=== PATIENT | female | born 1945 | race Caucasian/White ===

== ENCOUNTER 2021-03-17 05:49 | Inpatient (IN) ==
[2021-03-17] MEDS ORDERED: IOPAMIDOL 100 ML BOTTLE IV ONE (05:50)
--- NOTE | 2021-03-17 06:03 | Emergency Department Note ---
Overdose HPI General Chief Complaint: Overdose Stated Complaint: overdose Time Seen by Provider: 03/17/21 05:57 History of Present Illness HPI Narrative: Narrative: Dense to room T2 via EMS for evaluation of overdose. History is limited as the patient is somnolent and only mumbles. I did provide the majority of the history from the patient's medical record and EMS. EMS reports that they were called to the scene by the patient's roommate who is her daughter. It is reported that there was a argument between the patient and her daughter. EMS reports that her daughter had checked on her earlier this evening and noted that she was okay. Just prior to arrival the roommate noted the patient to have an altered level of consciousness with 2 empty pill bottles. These include oxycodone 20 mg tablets which were filled on 02/27/2021 with 165 tablets, and methadone 10 mg tablets which were filled on 02/28/2021 with 111 tablets. Later the daughter has called us to inform us that the patient also had empty pill bottles of buspirone 10 mg filled on 12/29/2020 with a 3-month supply and Klonopin 0.5 mg tablets filled on 03/09/2021 with 60 tablets. EMS reports there were multiple pill bottles noted in the room but these are the only ones they identified as being empty. They raised the question of the patient might have overdosed on her some of her thyroid medication as well. Per EMS Narcan 4 mg was administered by bystanders prior to their arrival. They state the patient did vomit prior to arrival but denied any significant observed aspiration. Related Data Home Medications Medication Instructions Recorded Confirmed alprazolam 0.5 mg tablet See Rx Instructions PO .COMPLEX 03/29/20 03/29/20 hydroxyzine HCl 25 mg tablet See Rx Instructions PO .COMPLEX 03/29/20 levothyroxine 75 mcg tablet See Rx Instructions PO .COMPLEX 03/29/20 03/29/20 metformin 500 mg tablet,extended See Rx Instructions PO .COMPLEX 03/29/20 03/29/20 release 24 hr methadone 10 mg tablet See Rx Instructions PO .COMPLEX 03/29/20 03/29/20 oxybutynin chloride 5 mg tablet See Rx Instructions PO .COMPLEX 03/29/20 03/29/20 oxycodone 20 mg tablet See Rx Instructions PO .COMPLEX 06/03/20 06/03/20 pantoprazole 40 mg granules See Rx Instructions PO .COMPLEX 03/29/20 03/29/20 delayed-release for susp in packet simvastatin 40 mg tablet See Rx Instructions PO .COMPLEX 03/29/20 03/29/20 Allergies Allergy/AdvReac Type Severity Reaction Status Date / Time Heparin Analogues Allergy Severe HIT Unverified 03/30/15 15:01 [HEPARIN AGENTS] omeprazole [From PRILOSEC] Allergy Intermediate Rash Unverified 03/30/15 15:01 gabapentin [From NEURONTIN] Allergy Unknown Unknown Unverified 03/30/15 15:01 Sulfa (Sulfonamide Allergy Unknown Unverified 03/30/15 15:01 Antibiotics) [SULFA (SULFONAMIDE ANTIBIOTICS)] From PRILOSEC Allergy Intermediate Rash Uncoded 03/30/15 15:01 From AMBIEN AdvReac Mild Psychosis Uncoded 03/30/15 15:01 Review of Systems ROS ROS Narrative: Narrative: Limitations: ROS unobtainable due to patients medical condition PFSH Narrative Patient History Narrative: Narrative: Medical/Surgical/Family History All Active Problems (Updated 03/17/21 @ 06:27 by Patricio Gomez MD) Overdose (Acute) Radiculopathy, lumbar region (Chronic) Hepatitis-C (Chronic) Hypertension (Chronic) History of pneumonia (Chronic) Shortness of breath on exertion (Chronic) Myofascial pain (Chronic) Hepatitis B (Chronic) Hepatitis A (Chronic) Fibromyalgia (Chronic) History of embolic stroke (Chronic) Chronic bronchitis (Chronic) GERD (gastroesophageal reflux disease) (Chronic) Rheumatoid arthritis (Chronic) Opioid dependence (Chronic) Degenerative joint disease (Chronic) Medical History Chronic bronchitis Degenerative joint disease Fibromyalgia GERD (gastroesophageal reflux disease) Hepatitis A Hepatitis B Hepatitis-C s/p interferon therapy History of embolic stroke w/minimal post stroke sequelae History of pneumonia Hypertension Myofascial pain Opioid dependence pain control of benign origin Radiculopathy, lumbar region Rheumatoid arthritis Shortness of breath on exertion Surgical History History of surgery TF TYLOR #1 Bilat L4-5 w/sed 05/24/20 LESI #1 L4-5 w/o sed 11-05-11 Family History Other No pertinent family history Exam Narrative Narrative: Narrative: General General appearance: Present appears intoxicated, in no apparent distress and lethargic Head Head: Present atraumatic, normocephalic and normal inspection Eye Eye: Present normal appearance, PERRL (Pinpoint pupils bilaterally) and EOMI; Absent conjunctival injection ENT ENT: Present normal exam and mucous membranes moist Neck Neck: Present normal inspection and trachea midline Respiratory Respiratory: Present normal lung sounds bilaterally; Absent respiratory distress Cardiovascular Cardiovascular: Present regular rate, normal rhythm and normal heart sounds Adbominal Abdominal: Present soft; Absent distention, tenderness, guarding and rebound Extremities Extremities: Present normal inspection; Absent tenderness Back Back: Present normal inspection; Absent tenderness Neurological Neurological: Present oriented X3 and CN II-XII intact; Absent alert (The patient only mumbles and is somnolent but does respond to painful stimuli.) and motor sensory deficit (Otherwise limited neurologic exam secondary to patient's somnolence, no focal neurologic deficits identified) Skin Skin: Present warm (WNL) and dry; Absent rash MDM MDM Narrative Medical decision making narrative: Narrative: Patient presents for evaluation treatment of multiple drug overdose. The patient lives with her daughter who is her roommate. It is reported by the granddaughter who has later arrived in the emergency department that they have been having disagreements recently. The pat ient appears to have ingested a large unknown quantity of oxycodone, methadone, buspirone and Klonopin. I have discussed the case with poison center. At this time it is supportive care recommended. Diagnostic studies have been initiated. EKG shows a normal sinus rhythm, the patient is protecting her airway. She is mildly hypoxic without supplemental oxygen but this corrects via oxygen by face mask. The patient will require admission for observation to complete her medical clearance. I have asked the oncoming physician to follow-up on all diagnostic studies continue her management admit the patient. The patient will benefit from evaluation by [facility] once medically cleared. EKG Data EKG #1: EKG attestation: Yes I reviewed and interpreted this EKG., Yes There are no EKG findings of acute coronary syndrome and Yes This EKG will be read by hatch boss EKG results narrative: Normal sinus rhythm, rate 62, normal ST segments, premature atrial complex noted, mild prolonged QTC at 504 Rhythm Strip Data Rhythm Strip Rate: 65 Interpretation: Normal sinus rhythm Pulse Oximetry Data Pulse Ox %: 88 Interpretation: Hypoxia on room air, corrected with facemask to 95% Discharge Plan Patient/Caregiver Discharge Instructions Pt seen by SOLID FIBER PASTER OPERATOR/PA only: No Clinical Impression: Overdose Patient Disposition: Still a Patient Prescriptions: No Action alprazolam 0.5 mg tablet See Rx Instructions PO .COMPLEX RF: 0 hydroxyzine HCl 25 mg tablet 25 mg tablet See Rx Instructions PO .COMPLEX RF: 0 levothyroxine 75 mcg tablet See Rx Instructions PO .COMPLEX RF: 0 metformin 500 mg tablet extended release 24 hr See Rx Instructions PO .COMPLEX RF: 0 methadone 10 mg tablet See Rx Instructions PO .COMPLEX RF: 0 oxybutynin chloride 5 mg tablet See Rx Instructions PO .COMPLEX RF: 0 oxycodone 20 mg tablet See Rx Instructions PO .COMPLEX RF: 0 pantoprazole [address] for susp in packet See Rx Instructions PO .COMPLEX RF: 0 simvastatin 40 mg tablet See Rx Instructions PO .COMPLEX RF: 0
[2021-03-17] MEDS ORDERED: 0.9 % SODIUM CHLORIDE 1,000 ML IV ONE (06:31)
--- NOTE | 2021-03-17 06:57 | XRay Report ---
CLINICAL INFORMATION: opiate overdose COMPARISON: 07/14/2010 FINDINGS: The heart is mildly enlarged. Mediastinum is unremarkable. Pulmonary vessels are mildly distended and there is mild interstitial edema throughout both lungs. Mild superimposed infiltrates in the bases. No effusions IMPRESSION: Mild CHF or volume overload Small superimposed bibasilar infiltrates consider aspiration. Interpreted and Authenticated by: Ananth Mcduffie 03/17/21
[2021-03-17 07:27] LABS: Basophils # (Auto) 0.04 K/mcL (0.00-0.20); Basophils % (Auto) 0.5 % (0.0-2.0); Eosinophils # (Auto) 0.04 K/mcL (0.00-0.70); Eosinophils % (Auto) 0.5 % (0.0-7.0); Hematocrit 40.6 % (36.0-48.0); Hemoglobin 13.7 g/dL (12.0-15.0); Lymphocytes # (Auto) 2.06 K/mcL (1.50-4.80); Lymphocytes % (Auto) 23.6 % (15.0-49.0); Mean Cell Volume 86.6 fL (80.0-100.0); Mean Corpuscular HGB Conc 33.7 g/dL (31.0-36.0); Mean Platelet Volume 10.7 fL (7.4-10.4); Monocytes # (Auto) 0.73 K/mcL (0.10-0.90); Monocytes % (Auto) 8.4 % (1.0-12.0); Platelet Count 184 K/mcL (140-440); RBC 4.69 M/mcL (4.00-5.20); WBC 8.7 K/mcL (4.5-11.0)
[2021-03-17 08:03] LABS: ALT/SGPT 19 U/L (<40); AST/SGOT 29 U/L (<32); Albumin 4.6 gm/dL (3.2-5.2); Albumin/Globulin Ratio 1.4 (1.0-2.3); Alkaline Phosphatase 60 U/L (39-117); Bilirubin,Total 0.4 mg/dL (0.1-1.0); Blood Urea Nitrogen 7 mg/dL (8-23); Calcium 9.5 mg/dL (8.6-10.4); Carbon Dioxide 23 mmol/L (22-30); Chloride 93 mmol/L (96-108); Globulin 3.3 gm/dL (2.2-3.7); Glomerular Filtration Rate 83; Glucose 122 mg/dL (70-105)
[2021-03-17 08:10] LABS: Free T3 2.2 pg/mL (2.0-4.4)
[2021-03-17 08:14] LABS: Free T4 (Free Thyroxine) 1.01 ng/dL (0.93-1.70); Thyroid Stimulating Hormone 1.66 uIU/mL (0.27-5.01)
[2021-03-17] MEDS ORDERED: FUROSEMIDE 20 MG/2 ML VIAL IV ONE (08:37)
--- NOTE | 2021-03-17 08:49 | Emergency Department Note ---
Overdose HPI General Chief Complaint: Overdose Stated Complaint: overdose Time Seen by Provider: 03/17/21 05:57 Source: patient, family, EMS, RN notes reviewed and old records reviewed Mode of arrival: EMS Limitations: altered mental status History of Present Illness HPI Narrative: Narrative: complaint: intentional overdose Onset (ago): unknown (Between 4 PM and 4 AM) Timing confirmed by: family member How Overdose Was Discovered: called family/friend Context: Intentional Overdose: relationship problems Associated symptoms: paranoia Treatments Prior to Arrival: narcan and other (Patient vomite after narcan, no pill fragments noted) Related Data Home Medications Medication Instructions Recorded Confirmed hydroxyzine HCl 25 mg tablet 25 mg PO QHS PRN 03/29/20 03/17/21 metformin 500 mg tablet,extended 500 mg PO TID 03/29/20 03/17/21 release 24 hr methadone 10 mg tablet 20 mg PO BID 03/29/20 03/17/21 oxycodone 20 mg tablet 20 mg PO Q4HP PRN 03/29/20 03/17/21 pantoprazole 40 mg granules 40 mg PO DAILY 03/29/20 03/17/21 delayed-release for susp in packet simvastatin 40 mg tablet 40 mg PO QHS 03/29/20 03/17/21 buspirone 10 mg PO TID PRN 03/17/21 03/17/21 clonazepam 0.5 mg PO BID PRN 03/17/21 03/17/21 duloxetine 30 mg PO QDAY 03/17/21 03/17/21 ergocalciferol (vitamin D2) 50,000 unit PO WEEKLY 03/17/21 03/17/21 [Calciferol] furosemide 20 mg PO QDAY 03/17/21 03/17/21 potassium chloride 10 meq PO QDAY 03/17/21 03/17/21 Allergies Allergy/AdvReac Type Severity Reaction Status Date / Time Heparin Analogues Allergy Severe HIT Verified 03/17/21 09:23 [HEPARIN AGENTS] omeprazole [From PRILOSEC] Allergy Intermediate Rash Verified 03/17/21 09:23 gabapentin [From NEURONTIN] Allergy Unknown Unknown Verified 03/17/21 09:23 Sulfa (Sulfonamide Allergy Unknown Verified 03/17/21 09:23 Antibiotics) [SULFA (SULFONAMIDE ANTIBIOTICS)] Review of Systems ROS ROS Narrative: Narrative: Limitations: ROS unobtainable due to patients medical condition [facility] Narrative Patient History Narrative: Narrative: Medical/Surgical/Family History All Active Problems (Updated 03/17/21 @ 13:57 by Fazal Meza MD) Overdose (Acute) Suicide attempt by multiple drug overdose (Acute) Methadone overdose (Acute) Radiculopathy, lumbar region (Chronic) Hepatitis-C (Chronic) Hypertension (Chronic) History of pneumonia (Chronic) Shortness of breath on exertion (Chronic) Myofascial pain (Chronic) Hepatitis B (Chronic) Hepatitis A (Chronic) Fibromyalgia (Chronic) History of embolic stroke (Chronic) Chronic bronchitis (Chronic) GERD (gastroesophageal reflux disease) (Chronic) Rheumatoid arthritis (Chronic) Opioid dependence (Chronic) Degenerative joint disease (Chronic) Medical History Chronic bronchitis Degenerative joint disease Fibromyalgia GERD (gastroesophageal reflux disease) Hepatitis A Hepatitis B Hepatitis-C s/p interferon therapy History of embolic stroke w/minimal post stroke sequelae History of pneumonia Hypertension Myofascial pain Opioid dependence pain control of benign origin Radiculopathy, lumbar region Rheumatoid arthritis Shortness of breath on exertion Surgical History History of surgery TF TYLOR #1 Bilat L4-5 w/sed 05/24/20 LESI #1 L4-5 w/o sed 11-05-11 Family History Other No pertinent family history Social History Smoking Status: Former smoker Exam Narrative Narrative: Narrative: General Limitations: altered mental status General appearance: Present lethargic, obese and sleepy Head Head: Present atraumatic and normocephalic Eye Eye: Present PERRL ENT ENT: Present normal exam and mucous membranes dry Neck Neck: Present normal inspection, full ROM and tenderness Chest Chest: Present normal inspection; Absent tenderness Respiratory Respiratory: Present rales/crackles; Absent respiratory distress Cardiovascular Cardiovascular: Present regular rate, normal rhythm and systolic murmur Adbominal Abdominal: Present soft; Absent distention, tenderness, guarding and rebound Extremities Extremities: Present normal inspection and full ROM; Absent tenderness, pedal edema and pretibial edema Back Back: Present normal inspection and tenderness; Absent CVA tenderness (R) and CVA tenderness (L) Expanded Neurological Patient oriented to: Present person Speech: Present slurred CRANIAL NERVES: gag reflex (IX): Normal Coma Scale Eye Opening: To Voice Coma Scale Motor Response: Obeys Commands Coma Scale Verbal Response: Confused Coma Scale Total: 13 Psychiatric Psychiatric: Present depressed, suicidal ideation and tearful Skin Skin: Present warm (WNL); Absent rash Course Vital Signs Vital signs: Vital Signs Pulse Rate 63 03/17/21 05:50 Respiratory Rate 20 03/17/21 05:50 Blood Pressure 211/84 03/17/21 05:50 Pulse Oximetry (%) 95 03/17/21 05:50 Pulse Rate 57 L 03/17/21 13:46 Respiratory Rate 19 03/17/21 13:46 Blood Pressure 176/123 03/17/21 13:46 Pulse Oximetry (%) 98 03/17/21 13:46 MDM MDM Narrative Medical decision making narrative: Narrative: 75-year-old female with polysubstance overdose for intentional self-harm. Main component of her overdose was methadone. Patient responded to Narcan at her home and is required multiple doses of Narcan here in the emergency department. Patient's family declined transfer requested the patient will be kept in the emergency department until staffing can be found for the patient to be admitted to the hospital. Patient remains on O2 and will require hospitalization for observation of the methadone rebound. Discussed patient with Bijan EAGLE and the patient is on a hold for suicide attempt. Lab Data Lab results reviewed: Yes I reviewed the patient's lab results. Result diagrams: 03/17/21 06:48 03/17/21 06:48 Labs: Lab Results 03/17/21 03/17/21 03/17/21 Range/Units 06:47 06:48 06:48 WBC 8.7 (4.5-11.0) K/mcL RBC 4.69 (4.00-5.20) M/mcL Hgb 13.7 (12.0-15.0) g/dL Hct 40.6 (36.0-48.0) % MCV 86.6 (80.0-100.0) fL MCH 29.2 (26.0-34.0) pg MCHC 33.7 (31.0-36.0) g/dL RDW 12.0 (11.5-14.5) % Plt Count 184 (140-440) K/mcL MPV 10.7 H (7.4-10.4) fL Neut % (Auto) 67.0 (38.0-78.0) % Lymph % (Auto) 23.6 (15.0-49.0) % Cannon % (Auto) 8.4 (1.0-12.0) % Eos % (Auto) 0.5 (0.0-7.0) % Baso % (Auto) 0.5 (0.0-2.0) % Lymph # (Auto) 2.06 (1.50-4.80) K/mcL Cannon # (Auto) 0.73 (0.10-0.90) K/mcL Eos # (Auto) 0.04 (0.00-0.70) K/mcL Baso # (Auto) 0.04 (0.00-0.20) K/mcL Absolute Neutrophils 5.87 (1.80-8.00) K/mcL Sodium 131 L (133-145) mmol/L Potassium 3.5 (3.3-5.1) mmol/L Chloride 93 L (96-108) mmol/L Carbon Dioxide 23 (22-30) mmol/L Anion Gap 15.0 (8.0-16.0) BUN 7 L (8-23) mg/dL Creatinine 0.7 (0.6-1.1) mg/dL GFR Calculation 83 Glucose 122 H (70-105) mg/dL Calcium 9.5 (8.6-10.4) mg/dL Total Bilirubin 0.4 (0.1-1.0) mg/dL AST 29 (<32) U/L ALT 19 (<40) U/L Alkaline Phosphatase 60 (39-117) U/L Troponin T (<0.03) ng/mL Total Protein 7.9 (5.9-8.4) gm/dL Albumin 4.6 (3.2-5.2) gm/dL Globulin 3.3 (2.2-3.7) gm/dL Albumin/Globulin Ratio 1.4 (1.0-2.3) TSH 1.66 (0.27-5.01) uIU/mL Free T4 1.01 (0.93-1.70) ng/dL Free T3 pg/mL 2.2 (2.0-4.4) pg/mL Urine Color Urine Appearance (Clear) Urine pH (5.0-9.0) Ur Specific Pray (1.000-1.035) Urine Protein (Negative) mg/dL Urine Glucose (UA) (Negative) mg/dL Urine Ketones (Negative) mg/dL Urine Occult Blood (Negative) mg/dL Urine Nitrate (Negative) Urine Bilirubin (Negative) mg/dL Urine Urobilinogen mg/dL Ur Leukocyte Esterase (Negative) /ug Urine RBC (0-3) /hpf Urine WBC (0-4) /hpf Ur Squamous Epith Cells (0-4) /hpf Urine Bacteria (0) /hpf Ur Culture Indicated? Salicylates mg/dL Acetaminophen ug/mL Ethyl Alcohol (<0.010) gm/dL 03/17/21 03/17/21 03/17/21 Range/Units 06:48 06:49 09:06 WBC (4.5-11.0) K/mcL RBC (4.00-5.20) M/mcL Hgb (12.0-15.0) g/dL Hct (36.0-48.0) % MCV (80.0-100.0) fL MCH (26.0-34.0) pg MCHC (31.0-36.0) g/dL RDW (11.5-14.5) % Plt Count (140-440) K/mcL MPV (7.4-10.4) fL Neut % (Auto) (38.0-78.0) % Lymph % (Auto) (15.0-49.0) % Cannon % (Auto) (1.0-12.0) % Eos % (Auto) (0.0-7.0) % Baso % (Auto) (0.0-2.0) % Lymph # (Auto) (1.50-4.80) K/mcL Cannon # (Auto) (0.10-0.90) K/mcL Eos # (Auto) (0.00-0.70) K/mcL Baso # (Auto) (0.00-0.20) K/mcL Absolute Neutrophils (1.80-8.00) K/mcL Sodium (133-145) mmol/L Potassium (3.3-5.1) mmol/L Chloride (96-108) mmol/L Carbon Dioxide (22-30) mmol/L Anion Gap (8.0-16.0) BUN (8-23) mg/dL Creatinine (0.6-1.1) mg/dL GFR Calculation Glucose (70-105) mg/dL Calcium (8.6-10.4) mg/dL Total Bilirubin (0.1-1.0) mg/dL AST (<32) U/L ALT (<40) U/L Alkaline Phosphatase (39-117) U/L Troponin T < 0.01 (<0.03) ng/mL Total Protein (5.9-8.4) gm/dL Albumin (3.2-5.2) gm/dL Globulin (2.2-3.7) gm/dL Albumin/Globulin Ratio (1.0-2.3) TSH (0.27-5.01) uIU/mL Free T4 (0.93-1.70) ng/dL Free T3 pg/mL (2.0-4.4) pg/mL Urine Color Urine Appearance (Clear) Urine pH (5.0-9.0) Ur Specific Pray (1.000-1.035) Urine Protein (Negative) mg/dL Urine Glucose (UA) (Negative) mg/dL Urine Ketones (Negative) mg/dL Urine Occult Blood (Negative) mg/dL Urine Nitrate (Negative) Urine Bilirubin (Negative) mg/dL Urine Urobilinogen mg/dL Ur Leukocyte Esterase (Negative) /ug Urine RBC (0-3) /hpf Urine WBC (0-4) /hpf Ur Squamous Epith Cells (0-4) /hpf Urine Bacteria (0) /hpf Ur Culture Indicated? Salicylates < 0.3 mg/dL Acetaminophen < 5.0 ug/mL Ethyl Alcohol < 0.010 (<0.010) gm/dL 03/17/21 Range/Units 09:10 WBC (4.5-11.0) K/mcL RBC (4.00-5.20) M/mcL Hgb (12.0-15.0) g/dL Hct (36.0-48.0) % MCV (80.0-100.0) fL MCH (26.0-34.0) pg MCHC (31.0-36.0) g/dL RDW (11.5-14.5) % Plt Count (140-440) K/mcL MPV (7.4-10.4) fL Neut % (Auto) (38.0-78.0) % Lymph % (Auto) (15.0-49.0) % Cannon % (Auto) (1.0-12.0) % Eos % (Auto) (0.0-7.0) % Baso % (Auto) (0.0-2.0) % Lymph # (Auto) (1.50-4.80) K/mcL Cannon # (Auto) (0.10-0.90) K/mcL Eos # (Auto) (0.00-0.70) K/mcL Baso # (Auto) (0.00-0.20) K/mcL Absolute Neutrophils (1.80-8.00) K/mcL Sodium (133-145) mmol/L Potassium (3.3-5.1) mmol/L Chloride (96-108) mmol/L Carbon Dioxide (22-30) mmol/L Anion Gap (8.0-16.0) BUN (8-23) mg/dL Creatinine (0.6-1.1) mg/dL GFR Calculation Glucose (70-105) mg/dL Calcium (8.6-10.4) mg/dL Total Bilirubin (0.1-1.0) mg/dL AST (<32) U/L ALT (<40) U/L Alkaline Phosphatase (39-117) U/L Troponin T (<0.03) ng/mL Total Protein (5.9-8.4) gm/dL Albumin (3.2-5.2) gm/dL Globulin (2.2-3.7) gm/dL Albumin/Globulin Ratio (1.0-2.3) TSH (0.27-5.01) uIU/mL Free T4 (0.93-1.70) ng/dL Free T3 pg/mL (2.0-4.4) pg/mL Urine Color Yellow Urine Appearance Clear (Clear) Urine pH 6.0 (5.0-9.0) Ur Specific Pray 1.010 (1.000-1.035) Urine Protein Negative (Negative) mg/dL Urine Glucose (UA) Negative (Negative) mg/dL Urine Ketones 5 A (Negative) mg/dL Urine Occult Blood Negative (Negative) mg/dL Urine Nitrate Negative (Negative) Urine Bilirubin Negative (Negative) mg/dL Urine Urobilinogen Negative mg/dL Ur Leukocyte Esterase Negative (Negative) /ug Urine RBC 1 (0-3) /hpf Urine WBC 1 (0-4) /hpf Ur Squamous Epith Cells 0 (0-4) /hpf Urine Bacteria None (0) /hpf Ur Culture Indicated? No Salicylates mg/dL Acetaminophen ug/mL Ethyl Alcohol (<0.010) gm/dL Radiology Data Radiology results reviewed: Yes I reviewed the patient's radiology results. Pulse Oximetry Data Pulse Ox %: 98 Interpretation: WNL CC TIME Critical Care Time Critical Care Time: Yes Total Critical Care Time: 55 Attestation: Approximately [55] minutes of critical care time was used in order to assess and manage the high probability of imminent or life threatening deterioration to [respiratory arrest ] which required my highest level of preparedness and interventions with frequent patient assessments. This time is excluding time spent on separately billable procedures. Discharge Plan Patient/Caregiver Discharge Instructions Pt seen by ACCOUNT EXECUTIVE KEY ACCOUNTS/PA only: No Clinical Impression: Overdose Qualifiers: Encounter type: initial encounter Injury intent: intentional self-harm Qualified Code(s): T50.902A - Poisoning by unspecified drugs, medicaments and biological substances, intentional self-harm, initial encounter Suicide attempt by multiple drug overdose Qualifiers: Encounter type: initial encounter Qualified Code(s): T50.912A - Poisoning by multiple unspecified drugs, medicaments and biological substances, intentional self-harm, initial encounter Methadone overdose Qualifiers: Encounter type: initial encounter Injury intent: intentional self-harm Qualified Code(s): T40.3X2A - Poisoning by methadone, intentional self-harm, initial encounter Patient Disposition: Xfer As Inpt ([facility]) Prescriptions: No Action hydroxyzine HCl 25 mg tablet 25 mg tablet 25 mg PO QHS PRN (Reason: Itching) RF: 0 metformin 500 mg tablet extended release 24 hr 500 mg PO TID RF: 0 methadone 10 mg tablet 20 mg PO BID RF: 0 oxycodone 20 mg tablet 20 mg PO Q4HP PRN (Reason: Pain) RF: 0 pantoprazole [address] for susp in packet 40 mg PO DAILY RF: 0 simvastatin 40 mg tablet 40 mg PO QHS RF: 0 clonazepam 0.5 mg Tablet 0.5 mg PO BID PRN (Reason: Anxiety) RF: 0 potassium chloride 10 mEq Tablet Extended Release 10 meq PO QDAY RF: 0 Calciferol 50,000 unit Tablet 50,000 unit PO WEEKLY RF: 0 buspirone 10 mg Tablet 10 mg PO TID PRN (Reason: Anxiety) RF: 0 furosemide 20 mg Tablet 20 mg PO QDAY RF: 0 duloxetine 30 mg Capsule,Delayed Release(Dr/Ec) 30 mg PO QDAY RF: 0
[2021-03-17 09:49] LABS: Appearance,Urine CLEAR (Clear); Bilirubin,Urine Negative (Negative); Color,Urine YELLOW; Culture Indicated,Urine No; Glucose,Urine (UA) Negative (Negative); Ketones,Urine 5 mg/dL (Negative); Leukocyte Esterase,Urine Negative /ug (Negative); Nitrate,Urine Negative (Negative); Protein,Urine Negative (Negative); Urine Blood Negative (Negative); Urine RBC 1 /hpf (0-3); Urine Squamous Epithelial Cell 0 /hpf (0-4); Urine WBC 1 /hpf (0-4); Urobilinogen,Urine Negative
[2021-03-17 10:36] LABS: Acetaminophen < 5.0 ug/mL; Salicylate < 0.3 mg/dL
--- NOTE | 2021-03-17 12:16 | Cat Scan Report ---
CLINICAL INFORMATION: Trauma COMPARISON: None. TECHNIQUE: 2.5 mm helical slices were obtained in the skull base to vertex. Following reconstruction, axial reformatted images were reviewed at bone and parenchymal windows. The exam was performed using radiation dose optimization techniques including, but not limited to, automated exposure control, adjustment of the mA and/or kV according to patient size and use of iterative reconstruction technique. FINDINGS: The ventricles, sulci, fissures, and cisterns are symmetrically enlarged consistent with mild age-related atrophy. No extra-axial fluid collections are identified. Minimal patchy chronic ischemic changes in the cerebral white matter typical for age.. There is no evidence of hemorrhage, mass effect, or edema. Bone windows show no osseous abnormality. IMPRESSION: Mild atrophy and minimal chronic ischemic changes in the cerebral white matter-typical for age. No intracerebral hemorrhage or other posttraumatic change. Interpreted and Authenticated by: Ananth Mcduffie 03/17/21
--- NOTE | 2021-03-17 12:33 | Cat Scan Report ---
CLINICAL INFORMATION: Trauma COMPARISON: None. TECHNIQUE: Enteric contrast was utilized. 80 cc of Isovue-370 were injected intravenously, and 50 seconds later 2.5 mm helical slices were obtained from the lung apices through the subtrochanteric regions of the femurs. Following reconstruction, 2.5 mm sagittal, coronal and axial reformatted images were processed and reviewed at multiple windows and levels. 7 mm MIP reconstructions were obtained through the lungs to optimize nodule detection.The exam was performed using radiation dose optimization techniques including, but not limited to, automated exposure control, adjustment of the mA and/or kV according to patient size and use of iterative reconstruction technique. FINDINGS: Pulmonary parenchymal windows show moderate patchy filtrate in the left lower lobe and smaller patchy infiltrates in the posterior right lower lobe and posterior segment of the left upper lobe. Underlying chronic bronchitis noted. There is bronchiectasis in the subsegmental central bronchi of the right lung apex. There are no effusions or evidence of pneumothorax. The mediastinal windows show the heart is mildly enlarged with asymmetric enlargement of the right atrium. There is no adenopathy in the mediastinal hilar or axillary regions. Moderate hiatal hernia noted. No mediastinal hemorrhage. Descending thoracic aorta is normal diameter with diffuse intimal thickening. The thyroid is diminutive, but otherwise normal. Abdominal images show mild fatty change within the liver, but no laceration or other focal hepatic lesion. The gallbladder is surgically absent. Common bile duct is moderate dilated-10 mm compatible with post cholecystectomy state. The pancreas, both kidneys, adrenal glands, spleen and aorta including aortic branches are normal in size, configuration and attenuation without focal lesion. There is no free air, free fluid or adenopathy. Pelvic images show urinary bladder is moderately distended. Hysterectomy changes noted. Ovaries not identified and are either surgically absent or atrophic. Sigmoid diverticulosis appreciated no evidence of diverticulitis. The remainder of the large bowel, small bowel and stomach are grossly normal. Bone windows show no fracture or other osseous abnormality in the chest abdomen or pelvis IMPRESSION: 1. No acute posttraumatic change in the chest, abdomen and pelvis. 2. Moderate left lower lobe filtrate, small patchy posterior right lower lobe and small posterior left upper lobe infiltrates. Consider aspiration. Underlying chronic bronchitis noted 3. Small hiatal hernia. 4. Moderate urinary bladder distention. 5. Post cholecystectomy changes with mild dilatation of the common bile duct expected for the postcholecystectomy state. 6. Mild cardiomegaly with possible asymmetric enlargement of the right ventricle. This could indicate tricuspid valve disease. Suggest echocardiogram for more specific evaluation. Interpreted and Authenticated by: Ananth Mcduffie 03/17/21
--- NOTE | 2021-03-17 12:36 | Cat Scan Report ---
CLINICAL INFORMATION: Trauma COMPARISON: None. TECHNIQUE: 0.625 mm helical slices were obtained from the skull base through the superior T2 end plate, and following reconstruction, 2.5 mm sagittal, coronal and axial reformations were then processed. The exam was reviewed at bone and soft tissue windows. The exam was performed using radiation dose optimization techniques including, but not limited to, automated exposure control, adjustment of the mA and/or kV according to patient size and use of iterative reconstruction technique. FINDINGS: Sagittal reformatted images show the cervical spine is anatomically aligned. No fracture identified. Mild peridens fibrosis and calcification appreciated. The cervical cord is normal in contour and caliber without hemorrhage or other abnormality. No soft tissue abnormality. There is moderate degenerative change in the left TMJ. The C2-3 disc level is normal. At C3-4, mild broad disc protrusion left-sided asymmetry results in mild left IV foraminal narrowing At C4-5, mild broad disc protrusion results in mild central canal and moderate left lateral recess narrowing impinges the exiting left C5 nerve root At C5-6, moderate broad disc protrusion left-sided asymmetry results in mild central canal and moderate left lateral recess narrowing is possible impingement of the exiting left C6 nerve root The C6-7 and C7-T1 disc levels are normal. IMPRESSION: 1. No fracture or posttraumatic change. 2. Multilevel degeneration 3. Left TMJ degeneration Interpreted and Authenticated by: Ananth Mcduffie 03/17/21
--- NOTE | 2021-03-17 12:47 | Cat Scan Report ---
CLINICAL INFORMATION: pain post fall COMPARISON: None. TECHNIQUE: 0.625 mm helical slices were obtained from the mid C7 through mid L1. Following reconstruction, 2.5 mm axial sagittal coronal reformatted images were processed and reviewed at bone and soft tissue windows. FINDINGS: The thoracic spine is normal in curvature and alignment. No fracture or other osseous abnormality identified. There is minimal degenerative disc disease at each level, but no evidence of extrusion or protrusion. The canal, lateral recess and IV foramen are normal width at each level. No soft tissue abnormality. IMPRESSION: No posttraumatic change or other significant abnormality in the thoracic spine. Negative Interpreted and Authenticated by: Ananth Mcduffie 03/17/21
[2021-03-17 12:49] LABS: Alcohol, Blood < 10.0 mg/dL; Alcohol,Blood < 0.010 gm/dL (<0.010)
[2021-03-17] MEDS ORDERED: NALOXONE HCL 0.4 MG/ML VIAL IV ONE (13:23)
--- NOTE | 2021-03-17 14:12 | Cat Scan Report ---
CLINICAL INFORMATION: Trauma COMPARISON: Lumbar MRI 04/04/2020 TECHNIQUE: 0.625 mm helical slices were obtained from the mid T12 through mid S2 vertebral bodies. Following reconstruction, 2.5 mm coronal, sagittal, and axial reformations (angle to the disc spaces) were processed. Exam was reviewed at bone and soft tissue windows.The exam was performed using radiation dose optimization techniques including, but not limited to, automated exposure control, adjustment of the mA and/or kV according to patient size and use of iterative reconstruction technique. FINDINGS: Grade 1 L4-5 spondylolisthesis due to degenerative facet disease. The remaining lumbar spine is normal in curvature and alignment. No fracture or other osseous abnormality. Soft tissues are significant for moderate distention urinary bladder. No paraspinous hemorrhage. The L1-2 disc level is normal. At L2-3 and L3-4, minimal broad disc protrusions mildly impinges the thecal sac. There is mild facet arthropathy. No change. At L4-5, moderate broad disc protrusion, grade 1 spondylolisthesis and facet arthropathy result in moderate central canal and bilateral lateral recess narrowing. There is impingement of the descending L5 nerve roots. There is only minimal IV foraminal narrowing which does not appear to impinge the exiting L4 nerve roots. This shows slight progression At L5-S1 mild broad disc protrusion minimally impinges the anterior thecal sac. IMPRESSION: 1. No fracture or other acute posttraumatic change. 2. L4-5: Grade 1 spondylolisthesis due to degenerative facet disease broad disc protrusion and facet arthropathy resulting in moderate central canal and bilateral lateral recess narrowing impinging the descending L5 nerve roots. This has progressed from a 04/04/2020 lumbar MRI. Please correlate with L5 radiculopathy. 3. Moderate urinary bladder distention Interpreted and Authenticated by: Ananth Mcduffie 03/17/21
--- NOTE | 2021-03-17 14:40 | Internal Med History&Physical ---
HPI History of Present Illness Patient information: Note initiated : 03/17/21 at 2:40 pm Service Date, if different from initiated Date: [] Patient: Ember Shi 75 y/o F admitted on for overdose. Chief Complaint: [] History of present illness: Ms. Shi is a 75 year old female with a history of chronic pain on opioids, hypertension, DM, HLD who intentionally overdosed today at home. The patient took unknown quantities of methadone, oxycodone, clonazepam, buspirone, and probably other medications. She was found unresponsive by her daughter and given nasal narcan. EMS was called, the patient was taken to [facility] and given IV narcan. Workup included a CT chest, abdomen, pelvis w contrast that showed no acute post traumatic changes, there was moderate left lower lobe infiltrate and small patchy posterior right lower and left lower lobe infiltrates likely from aspiration, moderate urinary distention, mild cardiomegaly with possible enlargement of right ventricle. Initial EKG showed normal sinus rhythm, prolonged QTc. Repeat EKG showed improved QTc. She was admitted for ongoing management for multidrug overdose, the most concerning being methadone and oxycodone. Constitutional: no fever, fatigue, or weight loss Eyes: no vision changes or pain Cardiovascular: no chest pain, no palpitations Respiratory: no cough or dyspnea Gastrointestinal: no abdominal pain, no nausea, vomiting Genitourinary: no dysuria or difficulty voiding Musculoskeletal: chronic back pain Integumentary: no skin lesion or wound Neurological: no focal weakness or numbness Psychiatric: positive for depression, suicidal ideation Head: Atraumatic, normal inspection. Eyes: normal appearance, no scleral icterus. Neck: full ROM Respiratory: no respiratory distress. Cardiovascular: normal rate and rhythm, S1, S2. GI/Abdominal: soft, nontender, no guarding. Extremities: full range of motion, nontender. Neurological: lethargic, CN II-XII intact, intact motor, intact sensation. Psychiatric: depressed mood Skin: warm, normal color PFSH PFSH All Active Problems (Updated 03/17/21 @ 13:57 by Fazal Meza MD) Overdose (Acute) Suicide attempt by multiple drug overdose (Acute) Methadone overdose (Acute) Radiculopathy, lumbar region (Chronic) Hepatitis-C (Chronic) Hypertension (Chronic) History of pneumonia (Chronic) Shortness of breath on exertion (Chronic) Myofascial pain (Chronic) Hepatitis B (Chronic) Hepatitis A (Chronic) Fibromyalgia (Chronic) History of embolic stroke (Chronic) Chronic bronchitis (Chronic) GERD (gastroesophageal reflux disease) (Chronic) Rheumatoid arthritis (Chronic) Opioid dependence (Chronic) Degenerative joint disease (Chronic) Medical History Chronic bronchitis Degenerative joint disease Fibromyalgia GERD (gastroesophageal reflux disease) Hepatitis A Hepatitis B Hepatitis-C s/p interferon therapy History of embolic stroke w/minimal post stroke sequelae History of pneumonia Hypertension Myofascial pain Opioid dependence pain control of benign origin Radiculopathy, lumbar region Rheumatoid arthritis Shortness of breath on exertion Surgical History History of surgery TF TYLOR #1 Bilat L4-5 w/sed 05/24/20 LESI #1 L4-5 w/o sed 11-05-11 Family History Other No pertinent family history MEDS/ALLERGIES Home Medications and Allergies Home Medications Medication Instructions Recorded Confirmed Type hydroxyzine HCl 25 mg tablet 25 mg PO QHS PRN 03/29/20 03/17/21 History metformin 500 mg tablet,extended 500 mg PO TID 03/29/20 03/17/21 History release 24 hr methadone 10 mg tablet 20 mg PO BID 03/29/20 03/17/21 History oxycodone 20 mg tablet 20 mg PO Q4HP PRN 03/29/20 03/17/21 History pantoprazole 40 mg granules 40 mg PO DAILY 03/29/20 03/17/21 History delayed-release for susp in packet simvastatin 40 mg tablet 40 mg PO QHS 03/29/20 03/17/21 History buspirone 10 mg PO TID PRN 03/17/21 03/17/21 History clonazepam 0.5 mg PO BID PRN 03/17/21 03/17/21 History duloxetine 30 mg PO QDAY 03/17/21 03/17/21 History ergocalciferol (vitamin D2) 50,000 unit PO WEEKLY 03/17/21 03/17/21 History [Calciferol] furosemide 20 mg PO QDAY 03/17/21 03/17/21 History potassium chloride 10 meq PO QDAY 03/17/21 03/17/21 History Allergies Allergy/AdvReac Type Severity Reaction Status Date / Time Heparin Analogues Allergy Severe HIT Verified 03/17/21 09:23 [HEPARIN AGENTS] omeprazole [From PRILOSEC] Allergy Intermediate Rash Verified 03/17/21 09:23 gabapentin [From NEURONTIN] Allergy Unknown Unknown Verified 03/17/21 09:23 Sulfa (Sulfonamide Allergy Unknown Verified 03/17/21 09:23 Antibiotics) [SULFA (SULFONAMIDE ANTIBIOTICS)] EXAM Constitutional Vitals: Pulse Resp BP Pulse Ox 51 L 13 177/75 99 03/17/21 14:01 03/17/21 14:01 03/17/21 14:01 03/17/21 14:01 DATA Data Completed and Pending Labs: Labs from last 24 hours 03/17/21 03/17/21 03/17/21 09:10 09:06 06:49 WBC RBC Hgb Hct MCV MCH MCHC RDW Plt Count MPV Neut % (Auto) Lymph % (Auto) [place] % (Auto) Eos % (Auto) Baso % (Auto) Lymph # (Auto) [place] # (Auto) Eos # (Auto) Baso # (Auto) Absolute Neutrophils Sodium Potassium Chloride Carbon Dioxide Anion Gap BUN Creatinine GFR Calculation Glucose Calcium Total Bilirubin AST ALT Alkaline Phosphatase Troponin T Total Protein Albumin Globulin Albumin/Globulin Ratio TSH Free T4 Free T3 pg/mL Urine Color Yellow Urine Appearance Clear Urine pH 6.0 Ur Specific [place] 1.010 Urine Protein Negative Urine Glucose (UA) Negative Urine Ketones 5 A Urine Occult Blood Negative Urine Nitrate Negative Urine Bilirubin Negative Urine Urobilinogen Negative Ur Leukocyte Esterase Negative Urine RBC 1 Urine WBC 1 Ur Squamous Epith Cells 0 Urine Bacteria None Ur Culture Indicated? No Salicylates < 0.3 Urine Opiates Screen Ur Opiates Confirm Ur Oxycodone Screen Urine Methadone Screen Ur Methadone Confirm Acetaminophen < 5.0 Ur Barbiturates Screen Ur Barbiturate Confirm Ur Phencyclidine Scrn Urine PCP Confirm Ur Amphetamines Screen U Amphetamines Confirm U Benzodiazepines Scrn U Benzodiazepine Confm Urine Cocaine Screen Urine Cocaine Confirm U Cannabinoids Confirm U Marijuana (THC) Screen Ethyl Alcohol < 0.010 03/17/21 03/17/21 03/17/21 06:48 06:48 06:48 WBC RBC Hgb Hct MCV MCH MCHC RDW Plt Count MPV Neut % (Auto) Lymph % (Auto) [place] % (Auto) Eos % (Auto) Baso % (Auto) Lymph # (Auto) [place] # (Auto) Eos # (Auto) Baso # (Auto) Absolute Neutrophils Sodium 131 L Potassium 3.5 Chloride 93 L Carbon Dioxide 23 Anion Gap 15.0 BUN 7 L Creatinine 0.7 GFR Calculation 83 Glucose 122 H Calcium 9.5 Total Bilirubin 0.4 AST 29 ALT 19 Alkaline Phosphatase 60 Troponin T < 0.01 Total Protein 7.9 Albumin 4.6 Globulin 3.3 Albumin/Globulin Ratio 1.4 TSH Free T4 Free T3 pg/mL 2.2 Urine Color Urine Appearance Urine pH Ur Specific [place] Urine Protein Urine Glucose (UA) Urine Ketones Urine Occult Blood Urine Nitrate Urine Bilirubin Urine Urobilinogen Ur Leukocyte Esterase Urine RBC Urine WBC Ur Squamous Epith Cells Urine Bacteria Ur Culture Indicated? Salicylates Urine Opiates Screen Pending Ur Opiates Confirm Pending Ur Oxycodone Screen Pending Urine Methadone Screen Pending Ur Methadone Confirm Pending Acetaminophen Ur Barbiturates Screen Pending Ur Barbiturate Confirm Pending Ur Phencyclidine Scrn Pending Urine PCP Confirm Pending Ur Amphetamines Screen Pending U Amphetamines Confirm Pending U Benzodiazepines Scrn Pending U Benzodiazepine Confm Pending Urine Cocaine Screen Pending Urine Cocaine Confirm Pending U Cannabinoids Confirm Pending U Marijuana (THC) Screen Pending Ethyl Alcohol 03/17/21 03/17/21 06:48 06:47 WBC 8.7 RBC 4.69 Hgb 13.7 Hct 40.6 MCV 86.6 MCH 29.2 MCHC 33.7 RDW 12.0 Plt Count 184 MPV 10.7 H Neut % (Auto) 67.0 Lymph % (Auto) 23.6 [place] % (Auto) 8.4 Eos % (Auto) 0.5 Baso % (Auto) 0.5 Lymph # (Auto) 2.06 [place] # (Auto) 0.73 Eos # (Auto) 0.04 Baso # (Auto) 0.04 Absolute Neutrophils 5.87 Sodium Potassium Chloride Carbon Dioxide Anion Gap BUN Creatinine GFR Calculation Glucose Calcium Total Bilirubin AST ALT Alkaline Phosphatase Troponin T Total Protein Albumin Globulin Albumin/Globulin Ratio TSH 1.66 Free T4 1.01 Free T3 pg/mL Urine Color Urine Appearance Urine pH Ur Specific [place] Urine Protein Urine Glucose (UA) Urine Ketones Urine Occult Blood Urine Nitrate Urine Bilirubin Urine Urobilinogen Ur Leukocyte Esterase Urine RBC Urine WBC Ur Squamous Epith Cells Urine Bacteria Ur Culture Indicated? Salicylates Urine Opiates Screen Ur Opiates Confirm Ur Oxycodone Screen Urine Methadone Screen Ur Methadone Confirm Acetaminophen Ur Barbiturates Screen Ur Barbiturate Confirm Ur Phencyclidine Scrn Urine PCP Confirm Ur Amphetamines Screen U Amphetamines Confirm U Benzodiazepines Scrn U Benzodiazepine Confm Urine Cocaine Screen Urine Cocaine Confirm U Cannabinoids Confirm U Marijuana (THC) Screen Ethyl Alcohol A/P Narrative A/P Narrative: Assessment: 75 year old female admitted after intentional overdose with multiple prescription medications including methadone, oxycodone, clonazepam, buspirone. #Polysubstance overdose-unknown quantities -methadone -oxycodone -clonazepam -buspirone #Suicide attempt by overdose #Aspiration pneumonitis vs pneumonia #DM II #HLD #GERD #Chronic pain s/ fibromyalgia #Opioid dependence #Hx of stroke #Hx ADRIANO Plan -Narcan IV prn, consider narcan infusion. -Ceftriaxone for possible aspiration pneumonia -Monitor respiratory status EtC02 monitor pulse oximetry -Oxygen supplementation as needed. -IV fuid -SSI-low -Telemetry -Continue home PPI. -Hold other home medications for now. -Behavioral health evaluation when patient is stable. -Sitter -DVT ppx: Fondaparinux -Code status: DNR -Disposition: TBD Time Spent With Patient Time: Total time spent is greater than 50% in coordination of care (as documented) at patient's floor/unit and/or counseling patient:
[2021-03-17] MEDS ORDERED: NALOXONE HCL 1 MG in 0.9 % SODIUM CHLORIDE 250 ML IV SCH ×2 (15:00→16:12)
[2021-03-17] MEDS: LACTATED RINGERS 1,000 ML IV SCH (16:25)
[2021-03-17] MEDS ORDERED: DEXTROSE 50% 50 ML VIAL IV PRN (17:31)
[2021-03-17] MEDS ORDERED: DEXTROSE 31 GM ORAL.SUSP PO PRN (17:31)
[2021-03-17] MEDS ORDERED: cefTRIAXone 2 GM VIAL ONE (20:14)
[2021-03-17] MEDS: cefTRIAXone 2 GM in DEXTROSE 5% IN WATER 50 ML IV SCH (20:17)
[2021-03-17] MEDS: NALOXONE HCL 0.4 MG/ML VIAL IV PRN (21:40)
[2021-03-17] MEDS: INSULIN LISPRO 1 UNIT/0.01 ML UNIT SQ SCH (21:50)
[2021-03-17] MEDS: 0.9 % SODIUM CHLORIDE 10 ML SYRINGE IV SCH (21:50)
[2021-03-17] MEDS ORDERED: POTASSIUM CHLORIDE 20 MEQ TABLET PO ONE ×2 (22:36→22:38)
--- NOTE | 2021-03-17 22:43 | EKG ---
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 Measurements Intervals [place] Rate: 59 P: 54 LA: 200 QRS: -41 QRSD: 86 T: 47 QT: 484 QTc: 480 Interpretive Statements SINUS RHYTHM ATRIAL PREMATURE COMPLEX LAD, CONSIDER LAFB LEFT VENTRICULAR HYPERTROPHY Abnormal R-wave progression V3 No significant change since [id number] Electronically Signed On 03-19-2021 12:24:52 PDT by Tomi Leonardo M.D. /[facility] [place]//[id number]
[2021-03-18] MEDS ORDERED: MAGNESIUM SULFATE 2 GM/50 ML BAG IV ONE ×2 (01:20→01:27)
[2021-03-18 05:22] LABS: Amphetamine Screen,Urine None detected; Barbiturate Screen,Urine None detected; Benzodiazepines Screen,Urine Suspect positive; Cannabinoid Screen,Urine None detected; Cocaine Screen,Urine None detected; Opiate Screen,Urine None detected; Oxycodone, Urine Screen Suspect Positive; Phencyclidine Screen,Urine None detected
[2021-03-18] MEDS: 0.9 % SODIUM CHLORIDE 10 ML SYRINGE IV SCH ×3 (05:50→20:46)
[2021-03-18] MEDS: NALOXONE HCL 0.4 MG/ML VIAL IV PRN (05:51)
[2021-03-18] MEDS: LACTATED RINGERS 1,000 ML IV SCH (08:15)
[2021-03-18] MEDS: INSULIN LISPRO 1 UNIT/0.01 ML UNIT SQ SCH ×4 (08:17→20:46)
[2021-03-18] MEDS: PANTOPRAZOLE 40 MG PACKET PO SCH (09:11)
[2021-03-18] MEDS: FONDAPARINUX SODIUM 2.5 MG/0.5 ML SYRINGE SQ SCH (09:11)
[2021-03-18] MEDS: cefTRIAXone 2 GM in DEXTROSE 5% IN WATER 50 ML IV SCH (09:11)
[2021-03-18] MEDS ORDERED: DEXAMETHASONE 10 MG/ML VIAL IV ONE (11:42)
[2021-03-18] MEDS: FUROSEMIDE 20 MG TABLET PO SCH (11:54)
--- NOTE | 2021-03-18 11:58 | EKG ---
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 Measurements Intervals [place] Rate: 51 P: 57 ME: 212 QRS: -43 QRSD: 84 T: 36 QT: 504 QTc: 465 Interpretive Statements SINUS RHYTHM ATRIAL PREMATURE COMPLEX LEFT ANTERIOR FASCICULAR BLOCK LVH BY VOLTAGE SINCE [id number], NO SIGNIFICANT CHANGE Electronically Signed On 03-19-2021 12:33:36 PDT by Tomi Leonardo M.D. /[facility] [place]//[id number]
[2021-03-18] MEDS ORDERED: POTASSIUM CHLORIDE 20 MEQ TABLET PO PRN (12:51)
[2021-03-18] MEDS ORDERED: MAGNESIUM SULFATE 8.12 MEQ/2 ML VIAL IV PRN (12:54)
[2021-03-18 13:26] LABS: POC Blood Urea Nitrogen 4 mg/dL (6-20); POC CO2 24 mmol/L (22-30); POC Calcium, Ionized 1.13 mmEq/L (1.16-1.32); POC Chloride 103 mEq/L (96-108); POC Creatinine 0.5 mg/dL (0.6-1.2); POC Glucose, Random 156 mg/dL (70-105); POC Hematocrit 37 % (36-48); POC Potassium 3.7 mEql/L (3.3-5.1); POC Sodium 138 mEq/L (133-145)
[2021-03-18] MEDS: MAGNESIUM SULFATE 2 GM/50 ML BAG IV PRN (13:47)
[2021-03-18] MEDS: LABETALOL 5 MG/ML ML IV PRN (15:04)
--- NOTE | 2021-03-18 16:54 | Internal Med Progress Note ---
SUBJECTIVE Subjective Patient information: Note initiated : 03/18/21 at 4:50 pm Service Date, if different from initiated Date: [] Patient: Ember Shi 75 y/o F admitted on 03/17/21 for Overdose. Chief Complaint: [] Interval history: Ms. Shi is a 75 year old female with a history of chronic pain on opioids, hypertension, DM, HLD who intentionally overdosed today at home. The patient took unknown quantities of methadone, oxycodone, clonazepam, buspirone, and probably other medications. She was found unresponsive by her daughter and given nasal narcan. EMS was called, the patient was taken to [facility] ED and given IV narcan. Workup included a CT chest, abdomen, pelvis w contrast that showed no acute post traumatic changes, there was moderate left lower lobe infiltrate and small patchy posterior right lower and left lower lobe infiltra nelli likely from aspiration, moderate urinary distention, mild cardiomegaly with possible enlargement of right ventricle. Initial EKG showed normal sinus rhythm, prolonged QTc. Repeat EKG showed improved QTc. She was admitted for ongoing management for multidrug overdose, the most concerning being methadone and oxycodone. 03/18-more alert than yesterday, QTc improving, following potassium and magne sium, goal 4.0 and 2.0 respectively, advanced diet, discontinued IV fluid, resumed home lasix Head: Atraumatic, normal inspection. Eyes: normal appearance, no scleral icterus. Neck: full ROM Respiratory: no respiratory distress. Cardiovascular: normal rate and rhythm, S1, S2. GI/Abdominal: soft, nontender, no guarding. Extremities: full range of motion, nontender. Neurological: lethargic, CN II-XII intact, intact motor, intact sensation. Psychiatric: depressed mood Skin: warm, normal color Constitutional Vitals: Vital Signs Temp Pulse Resp BP Pulse Ox 97.7 F 56 L 22 170/86 93 03/18/21 12:01 03/18/21 16:00 03/18/21 16:00 03/18/21 16:00 03/18/21 16:00 Period Temp Pulse Resp BP Sys/Medina Pulse Ox Last 24 Hr 97.2 F-98.3 F 45-65 11-31 134-199/62-116 91-99 Intake and Output 03/18/21 03/18/2103/18/21 05:59 13:59 21:59 Intake Total 250 1907 260 Output Total 620 933 640 Balance -370 974 -380 Intake & Output: Intake & Output 03/18/21 03/18/21 03/18/21 05:59 13:59 21:59 Intake Total 250 1907 260 Output Total 620 933 640 Balance -370 974 -380 Intake: IV 50 1127 50 Lactated Ringers 1,000 ml @ 50 1077 mls/hr IV .Q20H [facility] Rx#: [id number] Rocephin 2 gm In Dextrose 5% in 50 Water 50 ml @ 100 mls/hr IV Q24H [facility] Rx#:[id number] Oral 200 780 210 Output: Urine Catheter Amount 620 933 640 Other: Meal Lunch Percent of Meal Consumed 100% Feeding Ability Independent Urine Appearance Clear Clear Clear Urine Color Bright Yellow Bright Yellow Bright Yellow Urine Odor Normal Normal OBJ DATA Labs CBC & Chem 7: 03/17/21 06:48 03/17/21 06:48 Labs: Abnormal Lab Results 03/18/21 03/17/21 03/17/21 13:19 09:10 06:48 MPV Sodium Chloride POC BUN 4 L BUN POC Creatinine 0.5 L Glucose POC Glucose 156 H POC WB Ioniz Calcium 1.13 L Urine Ketones 5 A Ur Oxycodone Screen Suspect positive A Urine Methadone Screen Suspect positive A U Benzodiazepines Scrn Suspect positive A 03/17/21 03/17/21 06:48 06:48 MPV 10.7 H Sodium 131 L Chloride 93 L POC BUN BUN 7 L POC Creatinine Glucose 122 H POC Glucose POC WB Ioniz Calcium Urine Ketones Ur Oxycodone Screen Urine Methadone Screen U Benzodiazepines Scrn Meds: Medications Dextrose (Dextrose 50% 50 Ml Vial) 0 ml IV UD PRN PRN Reason: Hypoglycemia Diagnostic Test (Pha) (Accu-Chek 1 Each Strip) 1 each FS ACHS [facility] Last Admin: 03/18/21 11:49 Dose: 1 each Documented by: Fondaparinux (Fondaparinux Sodium 2.5 Mg/0.5 Ml Syringe) 2.5 mg SQ DAILY [facility] Last Admin: 03/18/21 09:11 Dose: 2.5 mg Documented by: Furosemide (Furosemide 20 Mg Tablet) 20 mg PO DAILY [facility] Last Admin: 03/18/21 11:54 Dose: 20 mg Documented by: Glucose (Dextrose 31 Gm Oral.Susp) 15 gm PO PRN PRN PRN Reason: Hypoglycemia Ceftriaxone Sodium 2 gm/ (Dextrose) 50 mls @ 100 mls/hr IV Q24H [facility]; Protocol Stop: 03/22/21 18:59 Last Infusion: 03/18/21 09:41 Dose: Infused Documented by: Magnesium Sulfate (Magnesium Sulfate) 2 gm in 50 mls @ 25 mls/hr IV PRN PRN PRN Reason: Hypomagnesemia Last Infusion: 03/18/21 15:47 Dose: Infused Documented by: Insulin Human Lispro (Insulin Lispro 1 Unit/0.01 Ml Unit) 0 unit SQ ACHS [facility]; Protocol Last Admin: 03/18/21 11:49 Dose: Not Given Documented by: Labetalol HCl (Labetalol 5 Mg/Ml Ml) 10 mg IV Q2H PRN PRN Reason: SBP > 190 Last Admin: 03/18/21 15:04 Dose: 10 mg Documented by: Naloxone HCl (Naloxone Hcl 0.4 Mg/Ml Vial) 0.2 mg IV Q5M PRN PRN Reason: Opiate Reversal Last Admin: 03/18/21 05:51 Dose: 0.2 mg Documented by: Pantoprazole Sodium (Pantoprazole 40 Mg Packet) 40 mg PO DAILY [facility] Last Admin: 03/18/21 09:11 Dose: 40 mg Documented by: Potassium Chloride (Potassium Chloride 20 Meq Tablet) 40 meq PO ONCE PRN PRN Reason: hypokalemia Last Admin: 03/18/21 16:07 Dose: 40 meq Documented by: Sodium Chloride (0.9 % Sodium Chloride 10 Ml Syringe) 10 ml IV Q8 [facility] Last Admin: 03/18/21 13:48 Dose: 10 ml Documented by: A/P Narrative A/P Narrative: Assessment: 75 year old female admitted after intentional overdose with multiple prescription medications including methadone, oxycodone, clonazepam, buspirone. #Polysubstance overdose-unknown quantities -methadone -oxycodone -clonazepam -buspirone #Suicide attempt by overdose #Aspiration pneumonitis vs pneumonia #DM II #HLD #GERD #Chronic pain s/ fibromyalgia #Opioid dependence #Hx of stroke #Hx HIT Plan -Narcan IV prn. -Ceftriaxone for possible aspiration pneumonia -Monitor respiratory status EtC02 monitor pulse oximetry -Oxygen supplementation as needed. -discontinue IV fluid -resume home lasix -SSI-low -Telemetry -Continue home PPI. -Hold other home medications for now. -Behavioral health evaluation when patient is stable. -Sitter -DVT ppx: Fondaparinux (hx of HIT) -Code status: DNR -Disposition: TBD Time Spent With Patient Time: Total time spent is greater than 50% in coordination of care (as documented) at patient's floor/unit and/or counseling patient: QUALITY VTE Deep Vein Thrombosis/Pulmonary Embolism Present on Admission: No
[2021-03-19] MEDS: LABETALOL 5 MG/ML ML IV PRN ×4 (02:00→10:51)
[2021-03-19] MEDS: 0.9 % SODIUM CHLORIDE 10 ML SYRINGE IV SCH ×3 (06:01→21:16)
[2021-03-19 06:41] LABS: Basophils # (Auto) 0.06 K/mcL (0.00-0.20); Basophils % (Auto) 0.6 % (0.0-2.0); Eosinophils # (Auto) 0.07 K/mcL (0.00-0.70); Eosinophils % (Auto) 0.7 % (0.0-7.0); Hematocrit 36.7 % (36.0-48.0); Hemoglobin 12.3 g/dL (12.0-15.0); Lymphocytes # (Auto) 3.37 K/mcL (1.50-4.80); Lymphocytes % (Auto) 32.6 % (15.0-49.0); Mean Cell Volume 87.6 fL (80.0-100.0); Mean Corpuscular HGB Conc 33.5 g/dL (31.0-36.0); Mean Platelet Volume 11.1 fL (7.4-10.4); Monocytes # (Auto) 0.84 K/mcL (0.10-0.90); Monocytes % (Auto) 8.1 % (1.0-12.0); Platelet Count 201 K/mcL (140-440); RBC 4.19 M/mcL (4.00-5.20); Red Cell Distribution Width 12.2 % (11.5-14.5); WBC 10.3 K/mcL (4.5-11.0)
[2021-03-19 07:40] LABS: ALT/SGPT 12 U/L (<40); AST/SGOT 22 U/L (<32); Albumin 3.7 gm/dL (3.2-5.2); Albumin/Globulin Ratio 1.2 (1.0-2.3); Alkaline Phosphatase 49 U/L (39-117); Bilirubin,Total 0.3 mg/dL (0.1-1.0); Blood Urea Nitrogen 7 mg/dL (8-23); Calcium 9.4 mg/dL (8.6-10.4); Carbon Dioxide 23 mmol/L (22-30); Chloride 104 mmol/L (96-108); Globulin 3.2 gm/dL (2.2-3.7); Glomerular Filtration Rate 88; Glucose 116 mg/dL (70-105)
[2021-03-19] MEDS: INSULIN LISPRO 1 UNIT/0.01 ML UNIT SQ SCH ×4 (08:45→20:34)
[2021-03-19] MEDS ORDERED: MAGNESIUM SULFATE 8.12 MEQ/2 ML VIAL IV SCH (09:00)
[2021-03-19] MEDS: cefTRIAXone 2 GM in DEXTROSE 5% IN WATER 50 ML IV SCH (09:00)
[2021-03-19] MEDS: PANTOPRAZOLE 40 MG PACKET PO SCH (10:51)
[2021-03-19] MEDS: FUROSEMIDE 20 MG TABLET PO SCH (10:51)
[2021-03-19] MEDS: FONDAPARINUX SODIUM 2.5 MG/0.5 ML SYRINGE SQ SCH (11:01)
[2021-03-19] MEDS ORDERED: LOPERAMIDE 2 MG CAPSULE PO PRN (11:30)
[2021-03-19] MEDS: cloNIDine HCL 0.1 MG TABLET PO PRN (11:51)
[2021-03-19] MEDS: ACETAMINOPHEN 500 MG TABLET PO PRN ×2 (11:51→21:16)
[2021-03-19] MEDS: tiZANidine 4 MG TABLET PO PRN (11:59)
--- NOTE | 2021-03-19 12:12 | EKG ---
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 Measurements Intervals [place] Rate: 55 P: 48 [place]: 196 QRS: -37 QRSD: 80 T: 65 QT: 484 QTc: 463 Interpretive Statements SINUS RHYTHM LEFT AXIS DEVIATION LEFT ANTERIOR FASCICULAR BLOCK PROBABLE LEFT VENTRICULAR HYPERTROPHY Since 03-18-21, 1151, no significant change Electronically Signed On 03-19-2021 12:46:42 PDT by Tomi Leonardo M.D. /[facility] [place]//[id number]/ecg/[id number]
[2021-03-19] MEDS: METHADONE 5 MG TABLET PO SCH ×2 (13:10→21:13)
--- NOTE | 2021-03-19 13:19 | Internal Med Progress Note ---
SUBJECTIVE Subjective Patient information: Note initiated : 03/19/21 at 1:18 pm Service Date, if different from initiated Date: [] Patient: Ember Shi 75 y/o F admitted on 03/17/21 for Overdose. Chief Complaint: [] Interval history: Ms. Shi is a 75 year old female with a history of chronic pain on opioids, hypertension, DM, HLD who intentionally overdosed today at home. The patient took unknown quantities of methadone, oxycodone, clonazepam, buspirone, and probably other medications. She was found unresponsive by her daughter and given nasal narcan. EMS was called, the patient was taken to [facility] ED and given IV narcan. Workup included a CT chest, abdomen, pelvis w contrast that showed no acute post traumatic changes, there was moderate left lower lobe infiltrate and small patchy posterior right lower and left lower lobe infiltra nelli likely from aspiration, moderate urinary distention, mild cardiomegaly with possible enlargement of right ventricle. Initial EKG showed normal sinus rhythm, prolonged QTc. Repeat EKG showed improved QTc. She was admitted for ongoing management for multidrug overdose, the most concerning being methadone and oxycodone. 03/18-more alert than yesterday, QTc improving, following potassium and magne sium, goal 4.0 and 2.0 respectively, advanced diet, discontinued IV fluid, resumed home lasix 03/19-COWS 11 today consistent with moderate opioid withdrawal, QTc 463, resumed home methadone, no beds at [facility] or [facility]. Head: Atraumatic, normal inspection. Eyes: normal appearance, no scleral icterus. Neck: full ROM Respiratory: no respiratory distress. Cardiovascular: normal rate and rhythm, S1, S2. GI/Abdominal: soft, nontender, no guarding. Extremities: full range of motion, nontender. Neurological: alert and oriented, CN II-XII intact, intact motor, intact sensation. Psychiatric: depressed mood Skin: warm, normal color Constitutional Vitals: Vital Signs Temp Pulse Resp BP Pulse Ox 98.2 F 57 L 21 181/79 95 03/19/21 12:02 03/19/21 08:01 03/19/21 13:04 03/19/21 13:02 03/19/21 13:04 Period Temp Pulse Resp BP Sys/Medina Pulse Ox Last 24 Hr 97.1 F-98.2 F 55-65 11-30 127-210/63-106 91-99 Intake and Output 03/18/21 03/19/21 03/19/21 21:59 05:59 13:59 Intake Total 260 360 150 Output Total 1243 810 535 Balance -983 -450 -385 Weight 67.086 kg Intake & Output: Intake & Output 03/18/21 03/19/21 03/19/21 21:59 05:59 13:59 Intake Total 260 360 150 Output Total 1243 810 535 Balance -983 -450 -385 Weight 67.086 kg Intake: IV 50 50 Rocephin 2 gm In Dextrose 5% in 50 Water 50 ml @ 100 mls/hr IV Q24H [facility] Rx#:[id number] Oral 210 360 100 Output: Urine Catheter Amount 1243 730 535 Void Amount 80 Other: Meal Breakfast Percent of Meal Consumed 25% Urine Appearance Clear Clear Urine Color Straw Straw Urine Odor Normal OBJ DATA Labs CBC & Chem 7: 03/19/21 04:45 03/19/21 04:45 Labs: Abnormal Lab Results 03/19/21 03/19/21 03/18/21 04:45 04:45 13:19 MPV 11.1 H Sodium Chloride POC BUN 4 L BUN 7 L POC Creatinine 0.5 L Glucose 116 H POC Glucose 156 H POC WB Ioniz Calcium 1.13 L Urine Ketones Ur Oxycodone Screen Urine Methadone Screen U Benzodiazepines Scrn 03/17/21 03/17/21 03/17/21 09:10 06:48 06:48 MPV Sodium 131 L Chloride 93 L POC BUN BUN 7 L POC Creatinine Glucose 122 H POC Glucose POC WB Ioniz Calcium Urine Ketones 5 A Ur Oxycodone Screen Suspect positive A Urine Methadone Screen Suspect positive A U Benzodiazepines Scrn Suspect positive A 03/17/21 06:48 MPV 10.7 H Sodium Chloride POC BUN BUN POC Creatinine Glucose POC Glucose POC WB Ioniz Calcium Urine Ketones Ur Oxycodone Screen Urine Methadone Screen U Benzodiazepines Scrn Meds: Medications Acetaminophen (Acetaminophen 500 Mg Tablet) 500 mg PO Q4HP PRN; Protocol PRN Reason: Per Pain Protocol Last Admin: 03/19/21 11:51 Dose: 500 mg Documented by: Clonidine HCl (Clonidine Hcl 0.1 Mg Tablet) 0.1 mg PO Q2HP PRN PRN Reason: Hypertension Last Admin: 03/19/21 11:51 Dose: 0.1 mg Documented by: Dextrose (Dextrose 50% 50 Ml Vial) 0 ml IV UD PRN PRN Reason: Hypoglycemia Diagnostic Test (Pha) (Accu-Chek 1 Each Strip) 1 each FS [facility] Last Admin: 03/19/21 13:05 Dose: 1 each Documented by: Fondaparinux (Fondaparinux Sodium 2.5 Mg/0.5 Ml Syringe) 2.5 mg SQ DAILY [facility] Last Admin: 03/19/21 11:01 Dose: 2.5 mg Documented by: Furosemide (Furosemide 20 Mg Tablet) 20 mg PO DAILY [facility] Last Admin: 03/19/21 10:51 Dose: 20 mg Documented by: Glucose (Dextrose 31 Gm Oral.Susp) 15 gm PO PRN PRN PRN Reason: Hypoglycemia Hydroxyzine HCl (Hydroxyzine 25 Mg Tablet) 25 mg PO TIDP PRN PRN Reason: Anxiety or itching Ceftriaxone Sodium 2 gm/ (Dextrose) 50 mls @ 100 mls/hr IV Q24H [facility]; Protocol Stop: 03/22/21 18:59 Last Infusion: 03/19/21 09:30 Dose: Infused Documented by: Magnesium Sulfate (Magnesium Sulfate) 2 gm in 50 mls @ 25 mls/hr IV PRN PRN PRN Reason: Hypomagnesemia Last Infusion: 03/18/21 15:47 Dose: Infused Documented by: Insulin Human Lispro (Insulin Lispro 1 Unit/0.01 Ml Unit) 0 unit SQ [facility]; Protocol Last Admin: 03/19/21 13:12 Dose: 1 units Documented by: Labetalol HCl (Labetalol 5 Mg/Ml Ml) 10 mg IV Q2H PRN PRN Reason: SBP > 190 Last Admin: 03/19/21 10:51 Dose: 10 mg Documented by: Loperamide HCl (Loperamide 2 Mg Capsule) 2 mg PO PRN PRN PRN Reason: Diarrhea Methadone HCl (Methadone 5 Mg Tablet) 20 mg PO BID [facility] Last Admin: 03/19/21 13:10 Dose: 20 mg Documented by: Naloxone HCl (Naloxone Hcl 0.4 Mg/Ml Vial) 0.2 mg IV Q5M PRN PRN Reason: Opiate Reversal Last Admin: 03/18/21 05:51 Dose: 0.2 mg Documented by: Pantoprazole Sodium (Pantoprazole 40 Mg Packet) 40 mg PO DAILY [facility] Last Admin: 03/19/21 10:51 Dose: 40 mg Documented by: Potassium Chloride (Potassium Chloride 20 Meq Tablet) 40 meq PO ONCE PRN PRN Reason: hypokalemia Last Admin: 03/18/21 16:07 Dose: 40 meq Documented by: Sodium Chloride (0.9 % Sodium Chloride 10 Ml Syringe) 10 ml IV Q8 [facility] Last Admin: 03/19/21 13:04 Dose: 10 ml Documented by: Tizanidine HCl (Tizanidine 4 Mg Tablet) 4 mg PO TID PRN PRN Reason: muscle spasms Last Admin: 03/19/21 11:59 Dose: 4 mg Documented by: A/P Narrative A/P Narrative: Assessment: 75 year old female admitted after intentional overdo se with multiple prescription medications including methadone, oxycodone, clonazepam, buspirone. #Polysubstance overdose-unknown quantities -methadone -oxycodone -clonazepam -buspirone #Suicide attempt by overdose #Aspiration pneumonitis vs pneumonia #DM II #HLD #GERD #Chronic pain s/ fibromyalgia #Opioid dependence #Hx of stroke #Hx HIT Plan -Resume home methadone now that patient is in moderate opioid withdawal. -Complete Ceftriaxone for possible aspiration pneumonia -prn meds for opioid withdrawal. -Continue home PPI and lasix. -Plan to resume antidepressant medications soon. -SSI-low -Telemetry -Continue home PPI. -Hold other home medications for now. -Behavioral health evaluation. -Sitter -DVT ppx: Fondaparinux (hx of HIT) -Code status: DNR -Disposition: probably inpatient psychiatry Time Spent With Patient Time: Total time spent is greater than 50% in coordination of care (as do cumented) at patient's floor/unit and/or counseling patient: QUALITY VTE Deep Vein Thrombosis/Pulmonary Embolism Present on Admission: No
[2021-03-20] MEDS: ACETAMINOPHEN 500 MG TABLET PO PRN ×2 (04:43→21:34)
[2021-03-20] MEDS: cloNIDine HCL 0.1 MG TABLET PO PRN (04:43)
[2021-03-20] MEDS: 0.9 % SODIUM CHLORIDE 10 ML SYRINGE IV SCH ×3 (05:51→21:32)
[2021-03-20] MEDS ORDERED: cloNIDine HCL 0.1 MG TABLET PO PRN (06:17)
[2021-03-20] MEDS: amLODIPine 5 MG TABLET PO SCH (07:06)
--- NOTE | 2021-03-20 07:08 | EKG ---
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 Measurements Intervals [place] Rate: 43 P: 73 [place]: 212 QRS: -40 QRSD: 84 T: 42 QT: 560 QTc: 474 Interpretive Statements AGE IS NOT ENTERED, ASSUMED TO BE 48 YEARS OLD FOR PURPOSE OF ECG INTERPRETATION SINUS BRADYCARDIA LEFT ANTERIOR FASCICULAR BLOCK LEFT VENTRICULAR HYPERTROPHY SINCE PREVIOUS ECG 03-19-211204, NO SIGNIFICANT CHANGE EXCEPT RATE Electronically Signed On 03-20-2021 16:23:07 PDT by Tomi Leonardo M.D. /[facility]etta/m/ecg/[id number]
[2021-03-20] MEDS ORDERED: hydrALAZINE 20 MG/ML VIAL IV PRN (07:09)
[2021-03-20] MEDS ORDERED: ENALAPRILAT 1.25 MG/ML VIAL IV PRN (07:09)
[2021-03-20] MEDS: INSULIN LISPRO 1 UNIT/0.01 ML UNIT SQ SCH ×4 (07:17→21:31)
[2021-03-20] MEDS: PANTOPRAZOLE 40 MG TABLET PO SCH (08:03)
--- NOTE | 2021-03-20 08:44 | Internal Med Progress Note ---
SUBJECTIVE Subjective Patient information: Note initiated : 03/20/21 at 8:41 am Service Date, if different from initiated Date: [] Patient: Ember Shi 75 y/o F admitted on 03/17/21 for Overdose. Chief Complaint: [] Interval history: Ms. Shi is a 75 year old female with a history of chronic pain on opioids, hypertension, DM, HLD who intentionally overdosed today at home. The patient took unknown quantities of methadone, oxycodone, clonazepam, buspirone, and probably other medications. She was found unresponsive by her daughter and given nasal narcan. EMS was called, the patient was taken to [facility] ED and given IV narcan. Workup included a CT chest, abdomen, pelvis w contrast that showed no acute post traumatic changes, there was moderate left lower lobe infiltrate and small patchy posterior right lower and left lower lobe infiltra nelli likely from aspiration, moderate urinary distention, mild cardiomegaly with possible enlargement of right ventricle. Initial EKG showed normal sinus rhythm, prolonged QTc. Repeat EKG showed improved QTc. She was admitted for ongoing management for multidrug overdose, the most concerning being methadone and oxycodone. 03/18-more alert than yesterday, QTc improving, following potassium and magne sium, goal 4.0 and 2.0 respectively, advanced diet, discontinued IV fluid, resumed home lasix 03/19-COWS 11 today consistent with moderate opioid withdrawal, opioid withdrawal prn meds, no beds at [facility] or [facility]. 03/20-started novasc for hypertension and added prn IV meds, QT still prolonged, continuing to replace potassium and magnesium as needed, QBH following for suicide attempt. Head: Atraumatic, normal inspection. Eyes: normal appearance, no scleral icterus. Neck: full ROM Respiratory: no respiratory distress. Cardiovascular: normal rate and rhythm, S1, S2. GI/Abdominal: soft, nontender, no guarding. Extremities: full range of motion, nontender. Neurological: alert and oriented, CN II-XII intact, intact motor, intact sensation. Psychiatric: anxious Skin: warm, normal color Constitutional Vitals: Vital Signs Temp Pulse Resp BP Pulse Ox 97.2 F 57 L 14 196/67 95 03/20/21 05:01 03/19/21 08:01 03/20/21 07:23 03/20/21 07:03 03/20/21 07:23 Period Temp Pulse Resp BP Sys/Medina Pulse Ox Last 24 Hr 97.2 F-98.2 F 5-30 121-213/63-161 93-99 Intake and Output 03/19/21 03/20/21 03/20/21 21:59 05:59 13:59 Intake Total 1010 Output Total 1450 1505 220 Balance -440 -1505 -220 Weight 69.218 kg Intake & Output: Intake & Output 03/19/21 03/20/21 03/20/21 21:59 05:59 13:59 Intake Total 1010 Output Total 1450 1505 220 Balance -440 -1505 -220 Weight 69.218 kg Intake: Oral 1010 Output: Urine Catheter Amount 1450 1505 220 Other: Meal Dinner Percent of Meal Consumed 50% Feeding Ability Independent Urine Appearance Clear Clear Clear Straight Clear Urine Color Pale Pale Bright Yellow Straight Bright Yellow Urine Odor Normal Straight Normal OBJ DATA Labs CBC & Chem 7: 03/19/21 04:45 03/19/21 04:45 Labs: Abnormal Lab Results 03/19/21 03/19/21 03/18/21 04:45 04:45 13:19 MPV 11.1 H POC BUN 4 L BUN 7 L POC Creatinine 0.5 L Glucose 116 H POC Glucose 156 H POC WB Ioniz Calcium 1.13 L Urine Ketones Ur Oxycodone Screen Urine Methadone Screen U Benzodiazepines Scrn 03/17/21 03/17/21 09:10 06:48 MPV POC BUN BUN POC Creatinine Glucose POC Glucose POC WB Ioniz Calcium Urine Ketones 5 A Ur Oxycodone Screen Suspect positive A Urine Methadone Screen Suspect positive A U Benzodiazepines Scrn Suspect positive A Meds: Medications Acetaminophen (Acetaminophen 500 Mg Tablet) 500 mg PO Q4HP PRN; Protocol PRN Reason: Per Pain Protocol Last Admin: 03/20/21 04:43 Dose: 500 mg Documented by: Amlodipine Besylate (Amlodipine 5 Mg Tablet) 5 mg PO DAILY [facility] Last Admin: 03/20/21 07:06 Dose: 5 mg Documented by: Dextrose (Dextrose 50% 50 Ml Vial) 0 ml IV UD PRN PRN Reason: Hypoglycemia Diagnostic Test (Pha) (Accu-Chek 1 Each Strip) 1 each FS ACHS [facility] Last Admin: 03/20/21 07:17 Dose: 1 each Documented by: Enalaprilat (Enalaprilat 1.25 Mg/Ml Vial) 0.625 mg IV Q6HP PRN PRN Reason: Hypertension Fondaparinux (Fondaparinux Sodium 2.5 Mg/0.5 Ml Syringe) 2.5 mg SQ DAILY [facility] Last Admin: 03/19/21 11:01 Dose: 2.5 mg Documented by: Furosemide (Furosemide 20 Mg Tablet) 20 mg PO DAILY [facility] Last Admin: 03/19/21 10:51 Dose: 20 mg Documented by: Glucose (Dextrose 31 Gm Oral.Susp) 15 gm PO PRN PRN PRN Reason: Hypoglycemia Hydralazine HCl (Hydralazine 20 Mg/Ml Vial) 20 mg IV Q4-6HP PRN PRN Reason: Hypertension Hydroxyzine HCl (Hydroxyzine 25 Mg Tablet) 25 mg PO TIDP PRN PRN Reason: Anxiety or itching Ceftriaxone Sodium 2 gm/ (Dextrose) 50 mls @ 100 mls/hr IV Q24H [facility]; Protocol Stop: 03/22/21 18:59 Last Infusion: 03/19/21 09:30 Dose: Infused Documented by: Magnesium Sulfate (Magnesium Sulfate) 2 gm in 50 mls @ 25 mls/hr IV PRN PRN PRN Reason: Hypomagnesemia Last Infusion: 03/18/21 15:47 Dose: Infused Documented by: Insulin Human Lispro (Insulin Lispro 1 Unit/0.01 Ml Unit) [address] [facility]; Protocol Last Admin: 03/20/21 07:17 Dose: Not Given Documented by: Loperamide HCl (Loperamide 2 Mg Capsule) 2 mg PO PRN PRN PRN Reason: Diarrhea Naloxone HCl (Naloxone Hcl 0.4 Mg/Ml Vial) 0.2 mg IV Q5M PRN PRN Reason: Opiate Reversal Last Admin: 03/18/21 05:51 Dose: 0.2 mg Documented by: Pantoprazole Sodium (Pantoprazole 40 Mg Tablet) 40 mg PO ACB [facility] Last Admin: 03/20/21 08:03 Dose: 40 mg Documented by: Potassium Chloride (Potassium Chloride 20 Meq Tablet) 40 meq PO ONCE PRN PRN Reason: hypokalemia Last Admin: 03/18/21 16:07 Dose: 40 meq Documented by: Sodium Chloride (0.9 % Sodium Chloride 10 Ml Syringe) 10 ml IV Q8 [facility] Last Admin: 03/20/21 05:51 Dose: 10 ml Documented by: Tizanidine HCl (Tizanidine 4 Mg Tablet) 4 mg PO TID PRN PRN Reason: muscle spasms Last Admin: 03/19/21 11:59 Dose: 4 mg Documented by: A/P Narrative A/P Narrative: Assessment: 75 year old female admitted after intentional overdose with multiple prescription medications including methadone, oxycodone, clonazepam, buspirone. #Polysubstance overdose-unknown quantities -methadone -oxycodone -clonazepam -buspirone #Suicide attempt by overdose #Aspiration pneumonitis vs pneumonia #Hypertension #DM II #HLD #GERD #Chronic pain s/ fibromyalgia #Opioid dependence #Hx of stroke #Hx HIT Plan -prn opioid withdrawal meds, QT still prolonged so holding methadone -Complete Ceftriaxone for possible aspiration pneumonia -Continue home PPI and lasix. -Plan to resume antidepressant medications soon. -SSI-low -Telemetry -Continue home PPI. -Hold other home medications for now. -Behavioral health evaluation. -Sitter -DVT ppx: Fondaparinux (hx of HIT) -Code status: DNR -Disposition: TBD Time Spent With Patient Time: Total time spent is greater than 50% in coordination of care (as documented) at patient's floor/unit and/or counseling patient: QUALITY VTE Deep Vein Thrombosis/Pulmonary Embolism Present on Admission: No
[2021-03-20] MEDS: cefTRIAXone 2 GM in DEXTROSE 5% IN WATER 50 ML IV SCH (09:00)
[2021-03-20] MEDS: tiZANidine 4 MG TABLET PO PRN ×2 (09:26→19:16)
[2021-03-20] MEDS: FONDAPARINUX SODIUM 2.5 MG/0.5 ML SYRINGE SQ SCH (09:26)
[2021-03-20] MEDS: hydrOXYzine 25 MG TABLET PO PRN ×2 (09:26→19:16)
[2021-03-20] MEDS: FUROSEMIDE 20 MG TABLET PO SCH (09:29)
[2021-03-20 10:10] LABS: Blood Urea Nitrogen 5 mg/dL (8-23); Calcium 9.3 mg/dL (8.6-10.4); Carbon Dioxide 24 mmol/L (22-30); Chloride 99 mmol/L (96-108); Glomerular Filtration Rate 83; Glucose 149 mg/dL (70-105)
--- NOTE | 2021-03-20 10:50 | EKG ---
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 Measurements Intervals [place] Rate: 62 P: 69 [place]: 200 QRS: -46 QRSD: 99 T: 71 QT: 496 QTc: 504 Interpretive Statements Sinus rhythm Atrial premature complex Left anterior fascicular block Low voltage, precordial leads Abnormal R-wave progression, early transition Probable LVH with secondary repol abnrm Prolonged QT interval No prior tracing for comparison. I reviewed and agree with the above findings. Electronically Signed On 03-19-2021 12:03:15 PDT by Tomi Leonardo M.D. /[email or web address]/[id number]/[id number]
--- NOTE | 2021-03-20 13:05 | Internal Med Progress Note ---
SUBJECTIVE Subjective Patient information: Note initiated : 03/20/21 at 1:02 pm Service Date, if different from initiated Date: [] Patient: Ember Shi 75 y/o F admitted on 03/17/21 for Overdose. Chief Complaint: [] Interval history: Ms. Shi is a 75 year old female with a history of chronic pain on opioids, hypertension, DM, HLD who intentionally overdosed today at home. The patient took unknown quantities of methadone, oxycodone, clonazepam, buspirone, and probably other medications. She was found unresponsive by her daughter and given nasal narcan. EMS was called, the patient was taken to [facility] ED and given IV narcan. Workup included a CT chest, abdomen, pelvis w contrast that showed no acute post traumatic changes, there was moderate left lower lobe infiltrate and small patchy posterior right lower and left lower lobe infiltra nelli likely from aspiration, moderate urinary distention, mild cardiomegaly with possible enlargement of right ventricle. Initial EKG showed normal sinus rhythm, prolonged QTc. Repeat EKG showed improved QTc. She was admitted for ongoing management for multidrug overdose, the most concerning being methadone and oxycodone. 03/18-more alert than yesterday, QTc improving, following potassium and magne sium, goal 4.0 and 2.0 respectively, advanced diet, discontinued IV fluid, resumed home lasix 03/19-COWS 11 today consistent with moderate opioid withdrawal, opioid withdrawal prn meds, no beds at [facility] or [facility]. 03/20-started novasc for hypertension and added prn IV meds, QT still prolonged, continuing to replace potassium and magnesium as needed, QBH following for suicide attempt. 03/21 Constitutional Vitals: Vital Signs Temp Pulse Resp BP Pulse Ox 97.2 F 57 L 12 133/56 94 03/20/21 12:01 03/19/21 08:01 03/20/21 12:14 03/20/21 12:01 03/20/21 12:14 Period Temp Pulse Resp BP Sys/Medina Pulse Ox Last 24 Hr 96.9 F-98 F 03-25 121-213/53-161 93-99 Intake and Output 03/19/21 03/20/21 03/20/21 21:59 05:59 13:59 Intake Total 1010 470 Output Total 1450 1505 844 Balance -440 1505 -169 Weight 69.218 kg Intake & Output: Intake & Output 03/19/21 03/20/21 03/20/21 21:59 05:59 13:59 Intake Total 1010 470 Output Total 1454 1505 844 Balance -440 1505 -464 Weight 69.218 kg Intake: IV 50 Rocephin 2 gm In Dextrose 5% in 50 Water 50 ml @ 100 mls/hr IV Q24H [facility] Rx#:[id number] Oral 1010 420 Output: Urine Catheter Amount 1452 1501 006 Other: Meal Dinner Breakfast Percent of Meal Consumed 50% 75% Feeding Ability Independent Urine Appearance Clear Clear Clear Straight Clear Urine Color Pale Pale Bright Yellow Straight Bright Yellow Urine Odor Normal Straight Normal Stool Size Large Stool Color Brown Stool Consistency Formed Darlene # Bowel Movements 1 Exam: General: Alert, Awake, No acute Distress Eyes/N/T: EOMI, Head/Neck: neck supple, CV: RRR, No murmurs, Pulm: Clear b/l, no wheezing/rhonchi/rales Abd: soft, nontender, +BS x4 Ext: no clubbing/cyanosis/edema Neuro: Alert, no focal deficits, moves all extremities, Skin: warm/dry OBJ DATA Labs CBC & Chem 7: 03/19/21 04:45 03/20/21 09:02 Labs: Abnormal Lab Results 03/20/21 03/19/21 03/19/21 09:02 04:45 04:45 MPV 11.1 H POC BUN BUN 5 L 7 L POC Creatinine Glucose 149 H 116 H POC Glucose POC WB Ioniz Calcium Ur Oxycodone Screen Urine Methadone Screen U Benzodiazepines Scrn 03/18/21 03/17/21 13:19 06:48 MPV POC BUN 4 L BUN POC Creatinine 0.5 L Glucose POC Glucose 156 H POC WB Ioniz Calcium 1.13 L Ur Oxycodone Screen Suspect positive A Urine Methadone Screen Suspect positive A U Benzodiazepines Scrn Suspect positive A Meds: Medications Acetaminophen (Acetaminophen 500 Mg Tablet) 500 mg PO Q4HP PRN; Protocol PRN Reason: Per Pain Protocol Last Admin: 03/20/21 04:43 Dose: 500 mg Documented by: Amlodipine Besylate (Amlodipine 5 Mg Tablet) 5 mg PO DAILY [facility] Last Admin: 03/20/21 07:06 Dose: 5 mg Documented by: Dextrose (Dextrose 50% 50 Ml Vial) 0 ml IV UD PRN PRN Reason: Hypoglycemia Diagnostic Test (Pha) (Accu-Chek 1 Each Strip) 1 each FS [facility] Last Admin: 03/20/21 11:31 Dose: 1 each Documented by: Enalaprilat (Enalaprilat 1.25 Mg/Ml Vial) 0.625 mg IV Q6HP PRN PRN Reason: Hypertension Fondaparinux (Fondaparinux Sodium 2.5 Mg/0.5 Ml Syringe) 2.5 mg SQ DAILY [facility] Last Admin: 03/20/21 09:26 Dose: 2.5 mg Documented by: Furosemide (Furosemide 20 Mg Tablet) 20 mg PO DAILY [facility] Last Admin: 03/20/21 09:29 Dose: 20 mg Documented by: Glucose (Dextrose 31 Gm Oral.Susp) 15 gm PO PRN PRN PRN Reason: Hypoglycemia Hydralazine HCl (Hydralazine 20 Mg/Ml Vial) 20 mg IV Q4-6HP PRN PRN Reason: Hypertension Hydroxyzine HCl (Hydroxyzine 25 Mg Tablet) 25 mg PO TIDP PRN PRN Reason: Anxiety or itching Last Admin: 03/20/21 09:26 Dose: 25 mg Documented by: Ceftriaxone Sodium 2 gm/ (Dextrose) 50 mls @ 100 mls/hr IV Q24H [facility]; Protocol Stop: 03/22/21 18:59 Last Infusion: 03/20/21 09:35 Dose: Infused Documented by: Magnesium Sulfate (Magnesium Sulfate) 2 gm in 50 mls @ 25 mls/hr IV PRN PRN PRN Reason: Hypomagnesemia Last Infusion: 03/18/21 15:47 Dose: Infused Documented by: Insulin Human Lispro (Insulin Lispro 1 Unit/0.01 Ml Unit) 0 unit SQ [facility]; Protocol Last Admin: 03/20/21 11:32 Dose: Not Given Documented by: Loperamide HCl (Loperamide 2 Mg Capsule) 2 mg PO PRN PRN PRN Reason: Diarrhea Naloxone HCl (Naloxone Hcl 0.4 Mg/Ml Vial) 0.2 mg IV Q5M PRN PRN Reason: Opiate Reversal Last Admin: 03/18/21 05:51 Dose: 0.2 mg Documented by: Pantoprazole Sodium (Pantoprazole 40 Mg Tablet) 40 mg PO ACB [facility] Last Admin: 03/20/21 08:03 Dose: 40 mg Documented by: Potassium Chloride (Potassium Chloride 20 Meq Tablet) 40 meq PO ONCE PRN PRN Reason: hypokalemia Last Admin: 03/18/21 16:07 Dose: 40 meq Documented by: Sodium Chloride (0.9 % Sodium Chloride 10 Ml Syringe) 10 ml IV Q8 [facility] Last Admin: 03/20/21 13:02 Dose: 10 ml Documented by: Tizanidine HCl (Tizanidine 4 Mg Tablet) 4 mg PO TID PRN PRN Reason: muscle spasms Last Admin: 03/20/21 09:26 Dose: 4 mg Documented by: A/P Narrative A/P Narrative: A: #Polysubstance overdose-unknown quantities -methadone, -oxycodone, -clonazepam, -buspirone #Suicide attempt by overdose: #Aspiration pneumonitis vs pneumonia: #Hypertension #DM II: #HLD #GERD #Chronic pain / fibromyalgia: #Opioid dependence: #Hx of stroke: #Hx HIT: Plan -prn opioid withdrawal meds, QT still prolonged so holding methadone -Complete Ceftriaxone for possible aspiration pneumonia -Continue home PPI and lasix -Plan to resume antidepressant medications soon -Hold other home medications for now -Behavioral health evaluation. -SSI -Sitter -Disposition: TBD -DVT ppx: Fondaparinux (hx of HIT) Code status: DNR Time Spent With Patient Time: Total time spent is greater than 50% in coordination of care (as documented) at patient's floor/unit and/or counseling patient: QUALITY VTE Deep Vein Thrombosis/Pulmonary Embolism Present on Admission: No
--- NOTE | 2021-03-20 14:42 | Discharge Summary ---
Discharge Provider Provider Patient information: Note initiated : 03/20/21 at 2:41 pm Service Date, if different from initiated Date: [] Patient: Ember Shi 75 y/o F admitted on 03/17/21 for Overdose. Chief Complaint: [] Date of admission: 03/17/21 16:00 Primary care physician: FELICIANO No Consults: 03/17/21 Consult to Physician [CONS] Stat Comment: Consulting Provider: Clayton Bess Reason For Exam: Physician to Consult Discharge Meds Discharge Medications Home Medications hydroxyzine HCl 25 mg tablet 25 mg PO QHS PRN 03/29/20 [History Confirmed 03/18/21 Last Taken 03/15/21] metformin 500 mg tablet,extended release 24 hr 1,000 mg PO BID 03/29/20 [History Confirmed 03/18/21 Last Taken 03/16/21] methadone 10 mg tablet 20 mg PO BID 03/29/20 [History Confirmed 03/17/21 Last Taken 03/17/21 03:30] oxycodone 20 mg tablet 20 mg PO Q4HP PRN 03/29/20 [History Confirmed 03/17/21 Last Taken 03/17/21 03:00] pantoprazole 40 mg granules delayed-release for susp in packet 40 mg PO DAILY 03/29/20 [History Confirmed 03/18/21 Last Taken 03/15/21] simvastatin 40 mg tablet 40 mg PO QHS 03/29/20 [History Confirmed 03/17/21 Last Taken Unknown] buspirone 10 mg PO TID PRN 03/17/21 [History Confirmed 03/18/21 Last Taken 03/15/21] clonazepam 0.5 mg PO BID PRN 03/17/21 [History Confirmed 03/18/21 Last Taken 03/17/21] duloxetine 30 mg PO QDAY 03/17/21 [History Confirmed 03/18/21 Last Taken 03/16/21] ergocalciferol (vitamin D2) 50,000 unit PO WEEKLY 03/17/21 [History Confirmed 03/17/21 Last Taken Unknown] furosemide 20 mg PO QDAY 03/17/21 [History Confirmed 03/17/21 Last Taken Unknown] potassium chloride 10 meq PO QDAY 03/17/21 [History Confirmed 03/17/21 Last Taken Unknown] carisoprodol 350 mg PO TID PRN 03/18/21 [History Confirmed 03/18/21 Last Taken 03/15/21] diclofenac sodium 2 g TOPICAL QID PRN 03/18/21 [History Confirmed 03/18/21 Last Taken Unknown] fluconazole 150 mg PO Q3D 03/18/21 [History Confirmed 03/18/21 Last Taken Unknown] ondansetron 4 mg PO Q8H PRN 03/18/21 [History Confirmed 03/18/21 Last Taken Unknown] COURSE Hospital Course Hospital course: Interval history: Ms. Shi is a 75 year old female with a history of chronic pain on opioids, hypertension, DM, HLD who intentionally overdosed today at home. The patient took unknown quantities of methadone, oxycodone, clonazepam, buspirone, and probably other medications. She was found unresponsive by her daughter and given nasal narcan. EMS was called, the patient was taken to [facility] ED and given IV narcan. Workup included a CT chest, abdomen, pelvis w contrast that showed no acute post traumatic changes, there was moderate left lower lobe infiltrate and small patchy posterior right lower and left lower lobe infiltrates likely from aspiration, moderate urinary distention, mild cardiomegaly with possible enlargement of right ventricle. Initial EKG showed normal sinus rhythm, prolonged QTc. Repeat EKG showed improved QTc. She was admitted for ongoing management for multidrug overdose, the most concerning being methadone and oxycodone. 03/18-more alert than yesterday, QTc improving, following potassium and magnesium, goal 4.0 and 2.0 respectively, advanced diet, discontinued IV fluid, resumed home lasix 03/19-COWS 11 today consistent with moderate opioid withdrawal, opioid withdrawal prn meds, no beds at [facility] or [facility]. 03/20-started novasc for hypertension and added prn IV meds, QT still prolonged, continuing to replace potassium and magnesium as needed, QBH following for suicide attempt. 03/21 No overnight event or new complaints. Other than complaining of some constipation. 03/22 Patient stated poor sleep but otherwise no new complaints. Waiting placement. A: #Polysubstance overdose-unknown quantities -methadone, -oxycodone, -clonazepam, -buspirone #Suicide attempt by overdose: #Aspiration pneumonitis vs pneumonia: #Hypertension #DM II: #HLD #GERD #Chronic pain / fibromyalgia: #Opioid dependence: #Hx of stroke: #Hx HIT: Discharge diagnosis: Polysubstance abuse with overdose suicide ideation evaluated by [facility] Secondary discharge diagnosis: Aspiration pneumonia pneumonitis versus pneumonia hypertension diabetes GERD chronic pain opioid dependence history of stroke history of HIT Time Spent with Patient Time attestation: Total time spent providing and/or coordinating discharge services: Time spent: Greater than 30 minutes EXAM Constitutional Vitals: Temp Pulse Resp BP Pulse Ox 97.2 F 57 L 19 136/59 98 03/20/21 12:01 03/19/21 08:01 03/20/21 14:29 03/20/21 14:02 03/20/21 14:29 Discharge Data Data Completed and Pending Labs on day of discharge: Labs from last 24 hours 03/20/21 09:02 Sodium 136 Potassium 3.5 Chloride 99 Carbon Dioxide 24 Anion Gap 13.0 BUN 5 L Creatinine 0.7 GFR Calculation 83 Glucose 149 H Calcium 9.3 Magnesium 1.8 Discharge Plan Patient/Caregiver Discharge Instructions Activity: increase activity as tolerated Diet: Consistent Carbohydrate Activity Restrictions/Additional Instructions: Follow-up with PCP in 3 to 7 days Follow-up with [facility] in 3 to 7 days Prescriptions: Continued hydroxyzine HCl 25 mg tablet 25 mg tablet 25 mg PO QHS PRN (Reason: Itching) RF: 0 metformin 500 mg tablet extended release 24 hr 1,000 mg PO BID RF: 0 methadone 10 mg tablet 20 mg PO BID RF: 0 oxycodone 20 mg tablet 20 mg PO Q4HP PRN (Reason: Pain) RF: 0 pantoprazole [address] for susp in packet 40 mg PO DAILY RF: 0 simvastatin 40 mg tablet 40 mg PO QHS RF: 0 clonazepam 0.5 mg Tablet 0.5 mg PO BID PRN (Reason: Anxiety) RF: 0 potassium chloride 10 mEq Tablet Extended Release 10 meq PO QDAY RF: 0 ergocalciferol (vitamin D2) 50,000 unit Tablet 50,000 unit PO WEEKLY RF: 0 buspirone 10 mg Tablet 10 mg PO TID PRN (Reason: Anxiety) RF: 0 furosemide 20 mg Tablet 20 mg PO QDAY RF: 0 duloxetine 30 mg Capsule,Delayed Release(Dr/Ec) 30 mg PO QDAY RF: 0 carisoprodol 350 mg tablet 350 mg PO TID PRN (Reason: Spasms) RF: 0 fluconazole 150 mg tablet 150 mg PO Q3D RF: 0 ondansetron 4 mg tablet,disintegrating 4 mg PO Q8H PRN (Reason: Nausea) RF: 0 diclofenac sodium 1 % gel 2 g TOPICAL QID PRN (Reason: Pain) RF: 0 Follow Up Plan Follow up with: No,PCP [Primary Care Provider] - Patient Disposition: er [facility] Prognosis: Undetermined Overall status at discharge: patient is progressing back to baseline QUALITY VTE Deep Vein Thrombosis/Pulmonary Embolism Present on Admission: No
[2021-03-20] MEDS: MAGNESIUM SULFATE 2 GM/50 ML BAG IV PRN (16:00)
[2021-03-20] MEDS ORDERED: POTASSIUM CHLORIDE 20 MEQ TABLET PO PRN (17:00)
[2021-03-21] MEDS: ACETAMINOPHEN 500 MG TABLET PO PRN ×3 (04:39→20:05)
[2021-03-21] MEDS: tiZANidine 4 MG TABLET PO PRN ×3 (04:39→22:39)
[2021-03-21] MEDS: 0.9 % SODIUM CHLORIDE 10 ML SYRINGE IV SCH ×4 (06:28→20:05)
[2021-03-21] MEDS: PANTOPRAZOLE 40 MG TABLET PO SCH (07:17)
[2021-03-21] MEDS: INSULIN LISPRO 1 UNIT/0.01 ML UNIT SQ SCH ×4 (07:18→20:06)
[2021-03-21 07:51] LABS: Blood Urea Nitrogen 8 mg/dL (8-23); Calcium 9.5 mg/dL (8.6-10.4); Carbon Dioxide 22 mmol/L (22-30); Chloride 101 mmol/L (96-108); Glomerular Filtration Rate 83; Glucose 115 mg/dL (70-105)
[2021-03-21] MEDS: FONDAPARINUX SODIUM 2.5 MG/0.5 ML SYRINGE SQ SCH (08:27)
[2021-03-21] MEDS: amLODIPine 5 MG TABLET PO SCH (08:27)
[2021-03-21] MEDS: FUROSEMIDE 20 MG TABLET PO SCH (08:27)
[2021-03-21] MEDS: cefTRIAXone 2 GM in DEXTROSE 5% IN WATER 50 ML IV SCH (08:28)
--- NOTE | 2021-03-21 09:52 | Internal Med Progress Note ---
SUBJECTIVE Subjective Patient information: Note initiated : 03/21/21 at 9:51 am Service Date, if different from initiated Date: [] Patient: Ember Shi 75 y/o F admitted on 03/17/21 for Overdose. Chief Complaint: [] Interval history: Ms. Shi is a 75 year old female with a history of chronic pain on opioids, hypertension, DM, HLD who intentionally overdosed today at home. The patient took unknown quantities of methadone, oxycodone, clonazepam, buspirone, and probably other medications. She was found unresponsive by her daughter and given nasal narcan. EMS was called, the patient was taken to [facility] ED and given IV narcan. Workup included a CT chest, abdomen, pelvis w contrast that showed no acute post traumatic changes, there was moderate left lower lobe infiltrate and small patchy posterior right lower and left lower lobe infiltra nelli likely from aspiration, moderate urinary distention, mild cardiomegaly with possible enlargement of right ventricle. Initial EKG showed normal sinus rhythm, prolonged QTc. Repeat EKG showed improved QTc. She was admitted for ongoing management for multidrug overdose, the most concerning being methadone and oxycodone. 03/18-more alert than yesterday, QTc improving, following potassium and magne sium, goal 4.0 and 2.0 respectively, advanced diet, discontinued IV fluid, resumed home lasix 03/19-COWS 11 today consistent with moderate opioid withdrawal, opioid withdrawal prn meds, no beds at [facility] or [facility]. 03/20-started novasc for hypertension and added prn IV meds, QT still prolonged, continuing to replace potassium and magnesium as needed, QBH following for suicide attempt. 03/21 No overnight event or new complaints. Other than complaining of some constipation. Review of Systems: denies headache/fever/chills/nausea/vomiting/chest or abdominal pain/cough/dyspnea/diarrhea. Otherwise see above. Constitutional Vitals: Vital Signs Temp Pulse Resp BP Pulse Ox 98.0 F 57 L 17 149/72 97 03/21/21 08:01 03/19/21 08:01 03/21/21 09:01 03/21/21 09:01 03/21/21 09:01 Period Temp Pulse Resp BP Sys/Medina Pulse Ox Last 24 Hr 97.2 F-98.0 F 10-25 122-198/48-110 94-100 Intake and Output 03/20/21 03/21/21 03/21/21 21:59 05:59 13:59 Intake Total 530 Output Total 2055 580 230 Balance -1525 -580 -230 Weight 68.855 kg Intake & Output: Intake & Output 03/20/21 03/21/21 03/21/21 21:59 05:59 13:59 Intake Total 530 Output Total 5 580 230 Balance -1525 -580 -230 Weight 68.855 kg Intake: IV 50 Oral 480 Output: Urine Catheter Amount 1810 580 230 Void Amount 245 Other: Urine Appearance Clear Clear Clear Urine Color Pale Straw Bright Yellow Urine Odor Normal Exam: General: Alert, Awake, No acute Distress Eyes/N/T: EOMI, Head/Neck: neck supple, CV: RRR, No murmurs, Pulm: Clear b/l, no wheezing/rhonchi/rales Abd: soft, nontender, +BS x4 Ext: no clubbing/cyanosis/edema Neuro: Alert, no focal deficits, moves all extremities, Skin: warm/dry OBJ DATA Labs CBC & Chem 7: 03/19/21 04:45 03/21/21 05:55 Labs: Abnormal Lab Results 03/21/21 03/20/21 03/19/21 05:55 09:02 04:45 MPV POC BUN BUN 5 L 7 L POC Creatinine Glucose 115 H 149 H 116 H POC Glucose POC WB Ioniz Calcium 03/19/21 03/18/21 04:45 13:19 MPV 11.1 H POC BUN 4 L BUN POC Creatinine 0.5 L Glucose POC Glucose 156 H POC WB Ioniz Calcium 1.13 L Meds: Medications Acetaminophen (Acetaminophen 500 Mg Tablet) 500 mg PO Q4HP PRN; Protocol PRN Reason: Per Pain Protocol Last Admin: 03/21/21 04:39 Dose: 500 mg Documented by: Amlodipine Besylate (Amlodipine 5 Mg Tablet) 5 mg PO DAILY [facility] Last Admin: 03/21/21 08:27 Dose: 5 mg Documented by: Dextrose (Dextrose 50% 50 Ml Vial) 0 ml IV UD PRN PRN Reason: Hypoglycemia Diagnostic Test (Pha) (Accu-Chek 1 Each Strip) 1 each FS [facility] Last Admin: 03/21/21 07:18 Dose: Not Given Documented by: Enalaprilat (Enalaprilat 1.25 Mg/Ml Vial) 0.625 mg IV Q6HP PRN PRN Reason: Hypertension Fondaparinux (Fondaparinux Sodium 2.5 Mg/0.5 Ml Syringe) 2.5 mg SQ DAILY [facility] Last Admin: 03/21/21 08:27 Dose: 2.5 mg Documented by: Furosemide (Furosemide 20 Mg Tablet) 20 mg PO DAILY [facility] Last Admin: 03/21/21 08:27 Dose: 20 mg Documented by: Glucose (Dextrose 31 Gm Oral.Susp) 15 gm PO PRN PRN PRN Reason: Hypoglycemia Hydralazine HCl (Hydralazine 20 Mg/Ml Vial) 20 mg IV Q4-6HP PRN PRN Reason: Hypertension Hydroxyzine HCl (Hydroxyzine 25 Mg Tablet) 25 mg PO TIDP PRN PRN Reason: Anxiety or itching Last Admin: 03/20/21 19:16 Dose: 25 mg Documented by: Ceftriaxone Sodium 2 gm/ (Dextrose) 50 mls @ 100 mls/hr IV Q24H [facility]; Protocol Stop: 03/22/21 18:59 Last Admin: 03/21/21 08:28 Dose: 100 mls/hr Documented by: Magnesium Sulfate (Magnesium Sulfate) 2 gm in 50 mls @ 25 mls/hr IV PRN PRN PRN Reason: Hypomagnesemia Last Infusion: 03/20/21 18:23 Dose: Infused Documented by: Insulin Human Lispro (Insulin Lispro 1 Unit/0.01 Ml Unit) 0 unit SQ [facility]; Protocol Last Admin: 03/21/21 07:18 Dose: Not Given Documented by: Loperamide HCl (Loperamide 2 Mg Capsule) 2 mg PO PRN PRN PRN Reason: Diarrhea Naloxone HCl (Naloxone Hcl 0.4 Mg/Ml Vial) 0.2 mg IV Q5M PRN PRN Reason: Opiate Reversal Last Admin: 03/18/21 05:51 Dose: 0.2 mg Documented by: Pantoprazole Sodium (Pantoprazole 40 Mg Tablet) 40 mg PO ACB [facility] Last Admin: 03/21/21 07:17 Dose: 40 mg Documented by: Potassium Chloride (Potassium Chloride 20 Meq Tablet) 40 meq PO DAILYP PRN PRN Reason: POTASSIUM LEVEL LESS THAN 4 Last Admin: 03/20/21 17:07 Dose: 40 meq Documented by: Sodium Chloride (0.9 % Sodium Chloride 10 Ml Syringe) 10 ml IV Q8 [facility] Last Admin: 03/21/21 06:28 Dose: 10 ml Documented by: Tizanidine HCl (Tizanidine 4 Mg Tablet) 4 mg PO TID PRN PRN Reason: muscle spasms Last Admin: 03/21/21 04:39 Dose: 4 mg Documented by: A/P Narrative A/P Narrative: A: #Polysubstance overdose-unknown quantities -methadone, -oxycodone, -clonazepam, -buspirone #Suicide attempt by overdose: #Aspiration pneumonitis vs pneumonia: #Hypertension #DM II: #HLD #GERD #Chronic pain / fibromyalgia: #Opioid dependence: #Hx of stroke: #Hx HIT: Plan -prn opioid withdrawal meds, QT still prolonged so holding methadone -Complete Ceftriaxone for possible aspiration pneumonia -Continue home PPI and lasix -Plan to resume antidepressant medications soon -Hold other home medications for now -Behavioral health evaluation. -SSI -Sitter -Disposition: TBD -DVT ppx: Fondaparinux (hx of HIT) Code status: DNR Time Spent With Patient Time: Total time spent is greater than 50% in coordination of care (as documented) at patient's floor/unit and/or counseling patient: QUALITY VTE Deep Vein Thrombosis/Pulmonary Embolism Present on Admission: No
[2021-03-21] MEDS ORDERED: ENALAPRILAT 1.25 MG/ML VIAL IV PRN (13:53)
[2021-03-21] MEDS ORDERED: LOPERAMIDE 2 MG CAPSULE PO PRN (13:53)
[2021-03-21] MEDS ORDERED: MAGNESIUM SULFATE 2 GM/50 ML BAG IV PRN (13:53)
[2021-03-21] MEDS ORDERED: DEXTROSE 50% 50 ML VIAL IV PRN (13:53)
[2021-03-21] MEDS ORDERED: NALOXONE HCL 0.4 MG/ML VIAL IV PRN (13:53)
[2021-03-21] MEDS ORDERED: POTASSIUM CHLORIDE 20 MEQ TABLET PO PRN (13:53)
[2021-03-21] MEDS ORDERED: hydrALAZINE 20 MG/ML VIAL IV PRN (13:53)
[2021-03-21] MEDS ORDERED: DEXTROSE 31 GM ORAL.SUSP PO PRN (13:53)
[2021-03-21] MEDS: hydrOXYzine 25 MG TABLET PO PRN (21:10)
[2021-03-22] MEDS: ACETAMINOPHEN 500 MG TABLET PO PRN ×2 (04:23→19:00)
[2021-03-22] MEDS: 0.9 % SODIUM CHLORIDE 10 ML SYRINGE IV SCH ×3 (05:50→20:51)
[2021-03-22] MEDS: PANTOPRAZOLE 40 MG TABLET PO SCH (07:44)
[2021-03-22] MEDS: INSULIN LISPRO 1 UNIT/0.01 ML UNIT SQ SCH ×4 (07:49→20:49)
[2021-03-22] MEDS ORDERED: OXYCODONE 20 MG PO PRN (08:41)
[2021-03-22] MEDS ORDERED: HYDROXYZINE HCL 25 MG PO PRN (08:41)
[2021-03-22] MEDS ORDERED: CARISOPRODOL 350 MG TABLET PO PRN (08:41)
--- NOTE | 2021-03-22 08:41 | Internal Med Progress Note ---
SUBJECTIVE Subjective Patient information: Note initiated : 03/22/21 at 8:39 am Service Date, if different from initiated Date: [] Patient: Ember Shi 75 y/o F admitted on 03/17/21 for Overdose. Chief Complaint: [] Interval history: Interval history: Ms. Shi is a 75 year old female with a history of chronic pain on opioids, hypertension, DM, HLD who intentionally overdosed today at home. The patient took unknown quantities of methadone, oxycodone, clonazepam, buspirone, and probably other medications. She was found unresponsive by her daughter and given nasal narcan. EMS was called, the patient was taken to [facility] ED and given IV narcan. Workup included a CT chest, abdomen, pelvis w contrast that showed no acute post traumatic changes, there was moderate left lower lobe infiltrate and small patchy posterior right lower and left lower lobe infiltrates likely from aspiration, moderate urinary distention, mild cardiomegaly with possible enlargement of right ventricle. Initial EKG showed normal sinus rhythm, prolonged QTc. Repeat EKG showed improved QTc. She was admitted for ongoing management for multidrug overdose, the most concerning being methadone and oxycodone. 03/18-more alert than yesterday, QTc improving, following potassium and magnesium, goal 4.0 and 2.0 respectively, advanced diet, discontinued IV fluid, resumed home lasix 03/19-COWS 11 today consistent with moderate opioid withdrawal, opioid withdrawal prn meds, no beds at [facility] or [facility]. 03/20-started novasc for hypertension and added prn IV meds, QT still prolonged, continuing to replace potassium and magnesium as needed, QBH following for suicide attempt. 03/21 No overnight event or new complaints. Other than complaining of some constipation. 03/22 Patient stated poor sleep but otherwise no new complaints. Waiting placement. Review of Systems: denies headache/fever/chills/nausea/vomiting/chest or abdominal pain/cough/dyspnea/diarrhea. Otherwise see above. Constitutional Vitals: Vital Signs Temp Pulse Resp BP Pulse Ox 97.7 F 54 L 16 131/87 95 03/22/21 04:19 03/22/21 04:19 03/22/21 04:19 03/22/21 04:19 03/22/21 04:19 Period Temp Pulse Resp BP Sys/Medina Pulse Ox Last 24 Hr 97.7 F-98.8 F 45-61 15- 120-177/58-101 93-100 Intake and Output 03/21/21 03/22/21 03/22/21 21:59 05:59 13:59 Intake Total 400 Output Total 1000 Balance -600 Weight 68.81 kg Intake & Output: Intake & Output 03/21/21 03/22/21 03/22/21 21:59 05:59 13:59 Intake Total 400 Output Total 1000 Balance -600 Weight 68.81 kg Intake: Oral 400 Output: Urine Catheter Amount 1000 Other: Urine Appearance Clear Straight Clear Urine Color Straw Straight Pale Exam: General: Alert, Awake, No acute Distress Eyes/N/T: EOMI, Head/Neck: neck supple, CV: RRR, No murmurs, Pulm: Clear b/l, no wheezing/rhonchi/rales Abd: soft, nontender, +BS x4 Ext: no clubbing/cyanosis/edema Neuro: Alert, no focal deficits, moves all extremities, Skin: warm/dry OBJ DATA Labs CBC & Chem 7: 03/19/21 04:45 03/21/21 05:55 Labs: Abnormal Lab Results 03/21/21 03/20/21 05:55 09:02 BUN 5 L Glucose 115 H 149 H Meds: Medications Acetaminophen (Acetaminophen 500 Mg Tablet) 500 mg PO Q4HP PRN; Protocol PRN Reason: Per Pain Protocol Last Admin: 03/22/21 04:23 Dose: 500 mg Documented by: Amlodipine Besylate (Amlodipine 5 Mg Tablet) 5 mg PO DAILY [facility] Dextrose (Dextrose 50% 50 Ml Vial) 0 ml IV UD PRN PRN Reason: Hypoglycemia Diagnostic Test (Pha) (Accu-Chek 1 Each Strip) 1 each FS ACHS [facility] Last Admin: 03/22/21 07:48 Dose: Not Given Documented by: Enalaprilat (Enalaprilat 1.25 Mg/Ml Vial) 0.625 mg IV Q6HP PRN PRN Reason: Hypertension Fondaparinux (Fondaparinux Sodium 2.5 Mg/0.5 Ml Syringe) 2.5 mg SQ DAILY [facility] Furosemide (Furosemide 20 Mg Tablet) 20 mg PO DAILY [facility] Glucose (Dextrose 31 Gm Oral.Susp) 15 gm PO PRN PRN PRN Reason: Hypoglycemia Hydralazine HCl (Hydralazine 20 Mg/Ml Vial) 20 mg IV Q4-6HP PRN PRN Reason: Hypertension Hydroxyzine HCl (Hydroxyzine 25 Mg Tablet) 25 mg PO TIDP PRN PRN Reason: Anxiety or itching Last Admin: 03/21/21 21:10 Dose: 25 mg Documented by: Ceftriaxone Sodium 2 gm/ (Dextrose) 50 mls @ 100 mls/hr IV DAILY [facility]; Protocol Magnesium Sulfate (Magnesium Sulfate) 2 gm in 50 mls @ 25 mls/hr IV PRN PRN PRN Reason: Hypomagnesemia Insulin Human Lispro (Insulin Lispro 1 Unit/0.01 Ml Unit) 0 unit SQ ACHS [facility]; Protocol Last Admin: 03/22/21 07:49 Dose: Not Given Documented by: Loperamide HCl (Loperamide 2 Mg Capsule) 2 mg PO PRN PRN PRN Reason: Diarrhea Naloxone HCl (Naloxone Hcl 0.4 Mg/Ml Vial) 0.2 mg IV Q5M PRN PRN Reason: Opiate Reversal Pantoprazole Sodium (Pantoprazole 40 Mg Tablet) 40 mg PO ACB [facility] Last Admin: 03/22/21 07:44 Dose: 40 mg Documented by: Potassium Chloride (Potassium Chloride 20 Meq Tablet) 40 meq PO DAILYP PRN PRN Reason: POTASSIUM LEVEL LESS THAN 4 Sodium Chloride (0.9 % Sodium Chloride 10 Ml Syringe) 10 ml IV Q8 [facility] Last Admin: 03/22/21 05:50 Dose: 10 ml Documented by: Tizanidine HCl (Tizanidine 4 Mg Tablet) 4 mg PO TIDP PRN PRN Reason: MUSCLE SPASMS Last Admin: 03/21/21 22:39 Dose: 4 mg Documented by: A/P Narrative A/P Narrative: A: #Polysubstance overdose-unknown quantities -methadone, -oxycodone, -clonazepam, -buspirone #Suicide attempt by overdose: #Aspiration pneumonitis vs pneumonia: #Hypertension #DM II: #HLD #GERD #Chronic pain / fibromyalgia: #Opioid dependence: #Hx of stroke: #Hx HIT: Plan -Complete Ceftriaxone for possible aspiration pneumonia -Continue home PPI and lasix -resume antidepressant -Behavioral health evaluation -SSI -Sitter -Disposition: TBD -DVT ppx: Fondaparinux (hx of HIT) Time Spent With Patient Time: Total time spent is greater than 50% in coordination of care (as documented) at patient's floor/unit and/or counseling patient: QUALITY VTE Deep Vein Thrombosis/Pulmonary Embolism Present on Admission: No
[2021-03-22] MEDS ORDERED: oxyCODONE HCL 5 MG TABLET PO PRN (08:50)
[2021-03-22] MEDS ORDERED: FUROSEMIDE 20 MG TABLET PO SCH (09:00)
[2021-03-22] MEDS: metFORMIN 500 MG TAB.XL.24H PO SCH ×2 (09:36→16:51)
[2021-03-22] MEDS: POTASSIUM CHLORIDE 10 MEQ TABLET PO SCH (09:39)
[2021-03-22] MEDS: FUROSEMIDE 20 MG TABLET PO SCH (09:40)
[2021-03-22] MEDS: DULoxetine 30 MG CAPSULE PO SCH (09:40)
[2021-03-22] MEDS ORDERED: BUTALB/ACETAMINOPHEN/CAFFEINE 1 TABLET PO ONE (10:00)
[2021-03-22] MEDS: cefTRIAXone 2 GM in DEXTROSE 5% IN WATER 50 ML IV SCH (10:02)
[2021-03-22] MEDS: amLODIPine 5 MG TABLET PO SCH (10:21)
[2021-03-22] MEDS: FONDAPARINUX SODIUM 2.5 MG/0.5 ML SYRINGE SQ SCH (10:33)
[2021-03-22] MEDS: MELATONIN 3 MG TABLET PO SCH (20:48)
[2021-03-22] MEDS: SIMVASTATIN 40 MG TABLET PO SCH (20:48)
[2021-03-22] MEDS: busPIRone 5 MG TABLET PO PRN (20:48)
[2021-03-22] MEDS: tiZANidine 4 MG TABLET PO PRN (21:09)
[2021-03-23] MEDS: ACETAMINOPHEN 500 MG TABLET PO PRN ×2 (03:11→07:32)
[2021-03-23 05:22] LABS: Methadone Confirmation Positive; Opiate Confirmation Positive
[2021-03-23] MEDS: oxyCODONE HCL 5 MG TABLET PO PRN (05:45)
[2021-03-23] MEDS: 0.9 % SODIUM CHLORIDE 10 ML SYRINGE IV SCH ×3 (05:46→21:14)
--- NOTE | 2021-03-23 07:14 | Internal Med Progress Note ---
SUBJECTIVE Subjective Patient information: Note initiated : 03/23/21 at 7:14 am Service Date, if different from initiated Date: [] Patient: Ember Shi 75 y/o F admitted on 03/17/21 for Overdose. Chief Complaint: [] Interval history: Interval history: Ms. Shi is a 75 year old female with a history of chronic pain on opioids, hypertension, DM, HLD who intentionally overdosed today at home. The patient took unknown quantities of methadone, oxycodone, clonazepam, buspirone, and probably other medications. She was found unresponsive by her daughter and given nasal narcan. EMS was called, the patient was taken to [facility] ED and given IV narcan. Workup included a CT chest, abdomen, pelvis w contrast that showed no acute post traumatic changes, there was moderate left lower lobe infiltrate and small patchy posterior right lower and left lower lobe infiltrates likely from aspiration, moderate urinary distention, mild cardiomegaly with possible enlargement of right ventricle. Initial EKG showed normal sinus rhythm, prolonged QTc. Repeat EKG showed improved QTc. She was admitted for ongoing management for multidrug overdose, the most concerning being methadone and oxycodone. 03/18-more alert than yesterday, QTc improving, following potassium and magnesium, goal 4.0 and 2.0 respectively, advanced diet, discontinued IV fluid, resumed home lasix 03/19-COWS 11 today consistent with moderate opioid withdrawal, opioid withdrawal prn meds, no beds at [facility] or [facility]. 03/20-started novasc for hypertension and added prn IV meds, QT still prolonged, continuing to replace potassium and magnesium as needed, QBH following for suicide attempt. 03/21 No overnight event or new complaints. Other than complaining of some constipation. 03/22 Patient stated poor sleep but otherwise no new complaints. Waiting placement. 03/23 Patient has no complaints. Per the nurse blood pressure was elevated last night. But typically has been pretty decent. Review of Systems: denies headache/fever/chills/nausea/vomiting/chest or abdominal pain/cough/dyspnea/diarrhea. Otherwise see above. Constitutional Vitals: Vital Signs Temp Pulse Resp BP Pulse Ox 97.2 F 66 18 152/76 96 03/23/21 03:13 03/23/21 03:13 03/23/21 03:13 03/23/21 03:13 03/23/21 03:13 Period Temp Pulse Resp BP Sys/Medina Pulse Ox Last 24 Hr 97.2 F-99.4 F 62-92 16-20 152-205/76-105 94-98 Intake and Output 03/22/21 03/23/21 03/23/21 21:59 05:59 13:59 Intake Total 480 100 Output Total 50 350 Balance 430 -250 Weight 61.462 kg Intake & Output: Intake & Output 03/22/21 03/23/21 03/23/21 21:59 05:59 13:59 Intake Total 480 100 Output Total 50 350 Balance 430 -250 Weight 61.462 kg Intake: Oral 480 100 Output: Void Amount 350 Emesis 50 Other: Urine Appearance Clear Urine Color Dark Yellow Stool Size Moderate Stool Color Brown Stool Consistency Liquid Exam: General: Alert, Awake, No acute Distress Eyes/N/T: EOMI, Head/Neck: neck supple, CV: RRR, No murmurs, Pulm: Clear b/l, no wheezing/rhonchi/rales Abd: soft, nontender, +BS x4 Ext: no clubbing/cyanosis/edema Neuro: Alert, no focal deficits, moves all extremities, Skin: warm/dry OBJ DATA Labs CBC & Chem 7: 03/19/21 04:45 03/21/21 05:55 Labs: Abnormal Lab Results 03/21/21 03/20/21 05:55 09:02 BUN 5 L Glucose 115 H 149 H Meds: Medications Acetaminophen (Acetaminophen 500 Mg Tablet) 500 mg PO Q4HP PRN; Protocol PRN Reason: Per Pain Protocol Last Admin: 03/23/21 03:11 Dose: 500 mg Documented by: Amlodipine Besylate (Amlodipine 5 Mg Tablet) 5 mg PO DAILY [facility] Last Admin: 03/22/21 10:21 Dose: 5 mg Documented by: Buspirone HCl (Buspirone 5 Mg Tablet) 10 mg PO TIDP PRN PRN Reason: Anxiety Last Admin: 03/22/21 20:48 Dose: 10 mg Documented by: Clonazepam (Clonazepam 0.5 Mg Tablet) 0.5 mg PO BIDP PRN PRN Reason: Anxiety Dextrose (Dextrose 50% 50 Ml Vial) 0 ml IV UD PRN PRN Reason: Hypoglycemia Diagnostic Test (Pha) (Accu-Chek 1 Each Strip) 1 each FS ACHS [facility] Last Admin: 03/22/21 20:49 Dose: Not Given Documented by: Duloxetine HCl (Duloxetine 30 Mg Capsule) 30 mg PO DAILY [facility] Last Admin: 03/22/21 09:40 Dose: 30 mg Documented by: Enalaprilat (Enalaprilat 1.25 Mg/Ml Vial) 0.625 mg IV Q6HP PRN PRN Reason: Hypertension Last Admin: 03/22/21 19:04 Dose: 0.625 mg Documented by: Fondaparinux (Fondaparinux Sodium 2.5 Mg/0.5 Ml Syringe) 2.5 mg SQ DAILY [facility] Last Admin: 03/22/21 10:33 Dose: 2.5 mg Documented by: Furosemide (Furosemide 20 Mg Tablet) 20 mg PO DAILY [facility] Last Admin: 03/22/21 09:40 Dose: 20 mg Documented by: Glucose (Dextrose 31 Gm Oral.Susp) 15 gm PO PRN PRN PRN Reason: Hypoglycemia Hydralazine HCl (Hydralazine 20 Mg/Ml Vial) 20 mg IV Q4-6HP PRN PRN Reason: Hypertension Hydroxyzine HCl (Hydroxyzine 25 Mg Tablet) 25 mg PO TIDP PRN PRN Reason: Anxiety or itching Last Admin: 03/21/21 21:10 Dose: 25 mg Documented by: Ceftriaxone Sodium 2 gm/ (Dextrose) 50 mls @ 100 mls/hr IV DAILY [facility]; Protocol Last Infusion: 03/22/21 10:35 Dose: Infused Documented by: Magnesium Sulfate (Magnesium Sulfate) 2 gm in 50 mls @ 25 mls/hr IV PRN PRN PRN Reason: Hypomagnesemia Insulin Human Lispro (Insulin Lispro 1 Unit/0.01 Ml Unit) 0 unit SQ ACHS [facility]; Protocol Last Admin: 03/22/21 20:49 Dose: Not Given Documented by: Loperamide HCl (Loperamide 2 Mg Capsule) 2 mg PO PRN PRN PRN Reason: Diarrhea Melatonin (Melatonin 3 Mg Tablet) 3 mg PO QHS [facility] Last Admin: 03/22/21 20:48 Dose: 3 mg Documented by: Metformin HCl (Metformin 500 Mg Tab.Xl.24h) 1,000 mg PO BIDCC [facility] Last Admin: 03/22/21 16:51 Dose: 1,000 mg Documented by: Naloxone HCl (Naloxone Hcl 0.4 Mg/Ml Vial) 0.2 mg IV Q5M PRN PRN Reason: Opiate Reversal Oxycodone HCl (Oxycodone Hcl 5 Mg Tablet) 20 mg PO Q6HP PRN; Protocol PRN Reason: Per Pain Protocol Last Admin: 03/23/21 05:45 Dose: 20 mg Documented by: Pantoprazole Sodium (Pantoprazole 40 Mg Tablet) 40 mg PO ACB [facility] Last Admin: 03/22/21 07:44 Dose: 40 mg Documented by: Potassium Chloride (Potassium Chloride 20 Meq Tablet) 40 meq PO DAILYP PRN PRN Reason: POTASSIUM LEVEL LESS THAN 4 Potassium Chloride (Potassium Chloride 10 Meq Tablet) 10 meq PO QAMCC [facility] Last Admin: 03/22/21 09:39 Dose: 10 meq Documented by: Simvastatin (Simvastatin 40 Mg Tablet) 40 mg PO QHS [facility] Last Admin: 03/22/21 20:48 Dose: 40 mg Documented by: Sodium Chloride (0.9 % Sodium Chloride 10 Ml Syringe) 10 ml IV Q8 [facility] Last Admin: 03/23/21 05:46 Dose: 10 ml Documented by: Tizanidine HCl (Tizanidine 4 Mg Tablet) 4 mg PO TIDP PRN PRN Reason: MUSCLE SPASMS Last Admin: 03/22/21 21:09 Dose: 4 mg Documented by: A/P Narrative A/P Narrative: A: #Polysubstance overdose-unknown quantities -methadone, -oxycodone, -clonazepam, -buspirone #Suicide attempt by overdose: #Aspiration pneumonitis vs pneumonia: #Hypertension #DM II: #HLD #GERD #Chronic pain / fibromyalgia: #Opioid dependence: #Hx of stroke: #Hx HIT: Plan -Complete Ceftriaxone for possible aspiration pneumonia -Continue home PPI and lasix -resume antidepressant -Behavioral health evaluation -SSI -Sitter -Disposition: TBD -DVT ppx: Fondaparinux (hx of HIT) Time Spent With Patient Time: Total time spent is greater than 50% in coordination of care (as documented) at patient's floor/unit and/or counseling patient: QUALITY VTE Deep Vein Thrombosis/Pulmonary Embolism Present on Admission: No
[2021-03-23] MEDS: tiZANidine 4 MG TABLET PO PRN ×2 (07:32→14:55)
[2021-03-23] MEDS: PANTOPRAZOLE 40 MG TABLET PO SCH (07:32)
[2021-03-23] MEDS: INSULIN LISPRO 1 UNIT/0.01 ML UNIT SQ SCH ×4 (07:43→21:14)
[2021-03-23] MEDS: POTASSIUM CHLORIDE 10 MEQ TABLET PO SCH (09:55)
[2021-03-23] MEDS: FUROSEMIDE 20 MG TABLET PO SCH (09:55)
[2021-03-23] MEDS: DULoxetine 30 MG CAPSULE PO SCH (10:21)
[2021-03-23] MEDS: amLODIPine 5 MG TABLET PO SCH (10:21)
[2021-03-23] MEDS: metFORMIN 500 MG TAB.XL.24H PO SCH ×2 (10:21→17:47)
[2021-03-23] MEDS: clonazePAM 0.5 MG TABLET PO PRN ×2 (10:21→21:13)
[2021-03-23] MEDS: METHADONE 5 MG TABLET PO SCH ×2 (10:22→21:13)
[2021-03-23] MEDS: FONDAPARINUX SODIUM 2.5 MG/0.5 ML SYRINGE SQ SCH (10:23)
[2021-03-23] MEDS: cefTRIAXone 2 GM in DEXTROSE 5% IN WATER 50 ML IV SCH (10:33)
[2021-03-23] MEDS: hydrOXYzine 25 MG TABLET PO PRN (14:51)
[2021-03-23] MEDS: busPIRone 5 MG TABLET PO PRN (14:51)
[2021-03-23] MEDS: SIMVASTATIN 40 MG TABLET PO SCH (21:13)
[2021-03-23] MEDS: MELATONIN 3 MG TABLET PO SCH (21:13)
[2021-03-24] MEDS ORDERED: ONDANSETRON 4 MG/2 ML VIAL ONE (01:26)
[2021-03-24] MEDS: 0.9 % SODIUM CHLORIDE 10 ML SYRINGE IV SCH ×4 (01:27→20:54)
[2021-03-24] MEDS: ONDANSETRON 4 MG/2 ML VIAL IV PRN (01:27)
[2021-03-24] MEDS: oxyCODONE HCL 5 MG TABLET PO PRN ×2 (04:10→13:47)
--- NOTE | 2021-03-24 07:19 | Internal Med Progress Note ---
SUBJECTIVE Subjective Patient information: Note initiated : 03/24/21 at 7:18 am Service Date, if different from initiated Date: [] Patient: Ember Shi 75 y/o F admitted on 03/17/21 for Overdose. Chief Complaint: [] Interval history: Interval history: Ms. Shi is a 75 year old female with a history of chronic pain on opioids, hypertension, DM, HLD who intentionally overdosed today at home. The patient took unknown quantities of methadone, oxycodone, clonazepam, buspirone, and probably other medications. She was found unresponsive by her daughter and given nasal narcan. EMS was called, the patient was taken to [facility] ED and given IV narcan. Workup included a CT chest, abdomen, pelvis w contrast that showed no acute post traumatic changes, there was moderate left lower lobe infiltrate and small patchy posterior right lower and left lower lobe infiltrates likely from aspiration, moderate urinary distention, mild cardiomegaly with possible enlargement of right ventricle. Initial EKG showed normal sinus rhythm, prolonged QTc. Repeat EKG showed improved QTc. She was admitted for ongoing management for multidrug overdose, the most concerning being methadone and oxycodone. 03/18-more alert than yesterday, QTc improving, following potassium and magnesium, goal 4.0 and 2.0 respectively, advanced diet, discontinued IV fluid, resumed home lasix 03/19-COWS 11 today consistent with moderate opioid withdrawal, opioid withdrawal prn meds, no beds at [facility] or [facility]. 03/20-started novasc for hypertension and added prn IV meds, QT still prolonged, continuing to replace potassium and magnesium as needed, QBH following for suicide attempt. 03/21 No overnight event or new complaints. Other than complaining of some constipation. 03/22 Patient stated poor sleep but otherwise no new complaints. Waiting placement. 03/23 Patient has no complaints. Per the nurse blood pressure was elevated last night. But typically has been pretty decent. 03/24 No overnight or new complaints. Awaiting placement still Constitutional Vitals: Vital Signs Temp Pulse Resp BP Pulse Ox 97 F 59 L 18 123/69 93 03/24/21 04:13 03/24/21 04:13 03/24/21 04:13 03/24/21 04:13 03/24/21 04:13 Period Temp Pulse Resp BP Sys/Medina Pulse Ox Last 24 Hr 97 F-98.5 F 59-73 16-18 96-130/54-77 93-97 Intake and Output 03/23/21 03/24/21 03/24/21 21:59 05:59 13:59 Intake Total 800 300 Output Total 200 300 Balance 600 300 -300 Weight 62.233 kg Intake & Output: Intake & Output 03/23/21 03/24/21 03/24/21 21:59 05:59 13:59 Intake Total 800 300 Output Total 200 300 Balance 600 300 -300 Weight 62.233 kg Intake: Oral 800 300 Output: Void Amount 200 300 Other: Meal Lunch Percent of Meal Consumed 50% Urine Appearance Clear Clear Urine Color Dark [place]elita Dark Yellow Exam: General: Alert, Awake, No acute Distress Eyes/N/T: EOMI, Head/Neck: neck supple, CV: RRR, No murmurs, Pulm: Clear b/l, no wheezing/rhonchi/rales Abd: soft, nontender, +BS x4 Ext: no clubbing/cyanosis/edema Neuro: Alert, no focal deficits, moves all extremities, Skin: warm/dry OBJ DATA Labs CBC & Chem 7: 03/19/21 04:45 03/21/21 05:55 Labs: Abnormal Lab Results 03/21/21 05:55 Glucose 115 H Meds: Medications Acetaminophen (Acetaminophen 500 Mg Tablet) 500 mg PO Q4HP PRN; Protocol PRN Reason: Per Pain Protocol Last Admin: 03/23/21 07:32 Dose: 500 mg Documented by: Amlodipine Besylate (Amlodipine 5 Mg Tablet) 5 mg PO DAILY [facility] Last Admin: 03/23/21 10:21 Dose: 5 mg Documented by: Buspirone HCl (Buspirone 5 Mg Tablet) 10 mg PO TIDP PRN PRN Reason: Anxiety Last Admin: 03/23/21 14:51 Dose: 10 mg Documented by: Clonazepam (Clonazepam 0.5 Mg Tablet) 0.5 mg PO BIDP PRN PRN Reason: Anxiety Last Admin: 03/23/21 21:13 Dose: 0.5 mg Documented by: Dextrose (Dextrose 50% 50 Ml Vial) 0 ml IV UD PRN PRN Reason: Hypoglycemia Diagnostic Test (Pha) (Accu-Chek 1 Each Strip) 1 each FS ACHS [facility] Last Admin: 03/23/21 21:14 Dose: Not Given Documented by: Duloxetine HCl (Duloxetine 30 Mg Capsule) 30 mg PO DAILY [facility] Last Admin: 03/23/21 10:21 Dose: 30 mg Documented by: Enalaprilat (Enalaprilat 1.25 Mg/Ml Vial) 0.625 mg IV Q6HP PRN PRN Reason: Hypertension Last Admin: 03/22/21 19:04 Dose: 0.625 mg Documented by: Fondaparinux (Fondaparinux Sodium 2.5 Mg/0.5 Ml Syringe) 2.5 mg SQ DAILY [facility] Last Admin: 03/23/21 10:23 Dose: 2.5 mg Documented by: Furosemide (Furosemide 20 Mg Tablet) 20 mg PO DAILY [facility] Last Admin: 03/23/21 09:55 Dose: Not Given Documented by: Glucose (Dextrose 31 Gm Oral.Susp) 15 gm PO PRN PRN PRN Reason: Hypoglycemia Hydralazine HCl (Hydralazine 20 Mg/Ml Vial) 20 mg IV Q4-6HP PRN PRN Reason: Hypertension Hydroxyzine HCl (Hydroxyzine 25 Mg Tablet) 25 mg PO TIDP PRN PRN Reason: Anxiety or itching Last Admin: 03/23/21 14:51 Dose: 25 mg Documented by: Magnesium Sulfate (Magnesium Sulfate) 2 gm in 50 mls @ 25 mls/hr IV PRN PRN PRN Reason: Hypomagnesemia Insulin Human Lispro (Insulin Lispro 1 Unit/0.01 Ml Unit) 0 unit SQ [facility]; Protocol Last Admin: 03/23/21 21:14 Dose: Not Given Documented by: Loperamide HCl (Loperamide 2 Mg Capsule) 2 mg PO PRN PRN PRN Reason: Diarrhea Melatonin (Melatonin 3 Mg Tablet) 3 mg PO QHS [facility] Last Admin: 03/23/21 21:13 Dose: 3 mg Documented by: Metformin HCl (Metformin 500 Mg [facility]l.24h) [facility] Last Admin: 03/23/21 17:47 Dose: 1,000 mg Documented by: Methadone HCl (Methadone 5 Mg Tablet) 20 mg PO BID [facility] Last Admin: 03/23/21 21:13 Dose: 20 mg Documented by: Naloxone HCl (Naloxone Hcl 0.4 Mg/Ml Vial) 0.2 mg IV Q5M PRN PRN Reason: Opiate Reversal Ondansetron HCl (Ondansetron 4 Mg/2 Ml Vial) 4 mg IV Q6HP PRN PRN Reason: Nausea And Vomiting Last Admin: 03/24/21 01:27 Dose: 4 mg Documented by: Oxycodone HCl (Oxycodone Hcl 5 Mg Tablet) 20 mg PO Q6HP PRN; Protocol PRN Reason: Per Pain Protocol Last Admin: 03/24/21 04:10 Dose: 20 mg Documented by: Pantoprazole Sodium (Pantoprazole 40 Mg Tablet) 40 mg PO ACB [facility] Last Admin: 03/23/21 07:32 Dose: 40 mg Documented by: Potassium Chloride (Potassium Chloride 20 Meq Tablet) 40 meq PO DAILYP PRN PRN Reason: POTASSIUM LEVEL LESS THAN 4 Potassium Chloride (Potassium Chloride 10 Meq Tablet) 10 meq PO QAMCC [facility] Last Admin: 03/23/21 09:55 Dose: Not Given Documented by: Simvastatin (Simvastatin 40 Mg Tablet) 40 mg PO QHS [facility] Last Admin: 03/23/21 21:13 Dose: 40 mg Documented by: Sodium Chloride (0.9 % Sodium Chloride 10 Ml Syringe) 10 ml IV Q8 [facility] Last Admin: 03/24/21 04:12 Dose: 10 ml Documented by: Tizanidine HCl (Tizanidine 4 Mg Tablet) 4 mg PO TIDP PRN PRN Reason: MUSCLE SPASMS Last Admin: 03/23/21 14:55 Dose: 4 mg Documented by: A/P Narrative A/P Narrative: A: #Polysubstance overdose-unknown quantities -methadone, -oxycodone, -clonazepam, -buspirone #Suicide attempt by overdose: #Aspiration pneumonitis vs pneumonia: #Hypertension #DM II: #HLD #GERD #Chronic pain / fibromyalgia: #Opioid dependence: #Hx of stroke: #Hx HIT: Plan -Completed Ceftriaxone for possible aspiration pneumonia -Continue home PPI and lasix -resume antidepressant -Behavioral health evaluation -SSI -Sitter -Disposition: still awaiting placement -DVT ppx: Fondaparinux (hx of HIT) Time Spent With Patient Time: Total time spent is greater than 50% in coordination of care (as documented) at patient's floor/unit and/or counseling patient: QUALITY VTE Deep Vein Thrombosis/Pulmonary Embolism Present on Admission: No
[2021-03-24] MEDS: metFORMIN 500 MG TAB.XL.24H PO SCH ×2 (07:49→16:30)
[2021-03-24] MEDS: POTASSIUM CHLORIDE 10 MEQ TABLET PO SCH (07:50)
[2021-03-24] MEDS: PANTOPRAZOLE 40 MG TABLET PO SCH (07:50)
[2021-03-24] MEDS: INSULIN LISPRO 1 UNIT/0.01 ML UNIT SQ SCH ×4 (09:12→20:53)
[2021-03-24] MEDS: METHADONE 5 MG TABLET PO SCH ×2 (09:34→20:51)
[2021-03-24] MEDS: FONDAPARINUX SODIUM 2.5 MG/0.5 ML SYRINGE SQ SCH (09:34)
[2021-03-24] MEDS: DULoxetine 30 MG CAPSULE PO SCH (09:36)
[2021-03-24] MEDS: amLODIPine 5 MG TABLET PO SCH (09:36)
[2021-03-24] MEDS: FUROSEMIDE 20 MG TABLET PO SCH (09:36)
[2021-03-24] MEDS: ACETAMINOPHEN 500 MG TABLET PO PRN (18:31)
[2021-03-24] MEDS: tiZANidine 4 MG TABLET PO PRN (18:32)
[2021-03-24] MEDS: MELATONIN 3 MG TABLET PO SCH (20:53)
[2021-03-24] MEDS: DOCUSATE SODIUM 100 MG CAPSULE PO SCH (20:54)
[2021-03-24] MEDS: SIMVASTATIN 40 MG TABLET PO SCH (20:54)
[2021-03-25] MEDS: ONDANSETRON 4 MG/2 ML VIAL IV PRN (02:14)
[2021-03-25] MEDS: oxyCODONE HCL 5 MG TABLET PO PRN ×2 (02:22→14:03)
[2021-03-25] MEDS: 0.9 % SODIUM CHLORIDE 10 ML SYRINGE IV SCH ×3 (05:40→21:19)
[2021-03-25] MEDS: INSULIN LISPRO 1 UNIT/0.01 ML UNIT SQ SCH ×4 (06:12→21:19)
--- NOTE | 2021-03-25 07:17 | Internal Med Progress Note ---
SUBJECTIVE Subjective Patient information: Note initiated : 03/25/21 at 7:17 am Service Date, if different from initiated Date: [] Patient: Ember Shi 75 y/o F admitted on 03/17/21 for Overdose. Chief Complaint: [] Interval history: Interval history: Ms. Shi is a 75 year old female with a history of chronic pain on opioids, hypertension, DM, HLD who intentionally overdosed today at home. The patient took unknown quantities of methadone, oxycodone, clonazepam, buspirone, and probably other medications. She was found unresponsive by her daughter and given nasal narcan. EMS was called, the patient was taken to [facility] ED and given IV narcan. Workup included a CT chest, abdomen, pelvis w contrast that showed no acute post traumatic changes, there was moderate left lower lobe infiltrate and small patchy posterior right lower and left lower lobe infiltrates likely from aspiration, moderate urinary distention, mild cardiomegaly with possible enlargement of right ventricle. Initial EKG showed normal sinus rhythm, prolonged QTc. Repeat EKG showed improved QTc. She was admitted for ongoing management for multidrug overdose, the most concerning being methadone and oxycodone. 03/18-more alert than yesterday, QTc improving, following potassium and magnesium, goal 4.0 and 2.0 respectively, advanced diet, discontinued IV fluid, resumed home lasix 03/19-COWS 11 today consistent with moderate opioid withdrawal, opioid withdrawal prn meds, no beds at [facility] or [facility]. 03/20-started novasc for hypertension and added prn IV meds, QT still prolonged, continuing to replace potassium and magnesium as needed, [facility] following for suicide attempt. 03/21 No overnight event or new complaints. Other than complaining of some constipation. 03/22 Patient stated poor sleep but otherwise no new complaints. Waiting placement. 03/23 Patient has no complaints. Per the nurse blood pressure was elevated last night. But typically has been pretty decent. 03/24 No overnight or new complaints. Awaiting placement still 03/25 No changes. Still awaiting placement. Constitutional Vitals: Vital Signs Temp Pulse Resp BP Pulse Ox 97.5 F 61 16 125/63 95 03/25/21 03:00 03/25/21 03:00 03/25/21 03:00 03/25/21 03:00 03/25/21 03:00 Period Temp Pulse Resp BP Sys/Medina Pulse Ox Last 24 Hr 97 F-98.1 F 61-91 14-18 95-141/53-82 91-97 Intake and Output 03/24/21 03/25/21 03/25/21 21:59 05:59 13:59 Intake Total 600 Output Total 926 300 Balance -926 300 Weight 62.505 kg Intake & Output: Intake & Output 03/24/21 03/25/21 03/25/21 21:59 05:59 13:59 Intake Total 600 Output Total 926 300 Balance -926 300 Weight 62.505 kg Intake: Oral 600 Output: Void Amount 925 300 # of times incontinent of urine 1 Other: Urine Appearance Clear Clear Urine Color Bright Yellow Bright Yellow Urine Odor Normal Normal # Voids 1 Exam: General: Alert, Awake, No acute Distress Eyes/N/T: EOMI, Head/Neck: neck supple, CV: RRR, No murmurs, Pulm: Clear b/l, no wheezing/rhonchi/rales Abd: soft, nontender, +BS x4 Ext: no clubbing/cyanosis/edema Neuro: Alert, no focal deficits, moves all extremities, Skin: warm/dry OBJ DATA Labs CBC & Chem 7: 03/19/21 04:45 03/21/21 05:55 Meds: Medications Acetaminophen (Acetaminophen 500 Mg Tablet) 500 mg PO Q4HP PRN; Protocol PRN Reason: Per Pain Protocol Last Admin: 03/24/21 18:31 Dose: 500 mg Documented by: Amlodipine Besylate (Amlodipine 5 Mg Tablet) 5 mg PO DAILY [facility] Last Admin: 03/24/21 09:36 Dose: 5 mg Documented by: Buspirone HCl (Buspirone 5 Mg Tablet) 10 mg PO TIDP PRN PRN Reason: Anxiety Last Admin: 03/23/21 14:51 Dose: 10 mg Documented by: Clonazepam (Clonazepam 0.5 Mg Tablet) 0.5 mg PO BIDP PRN PRN Reason: Anxiety Last Admin: 03/23/21 21:13 Dose: 0.5 mg Documented by: Dextrose (Dextrose 50% 50 Ml Vial) 0 ml IV UD PRN PRN Reason: Hypoglycemia Diagnostic Test (Pha) (Accu-Chek 1 Each Strip) 1 each FS [facility] Last Admin: 03/25/21 06:12 Dose: Not Given Documented by: Docusate Sodium (Docusate Sodium 100 Mg Capsule) 100 mg PO BID [facility] Last Admin: 03/24/21 20:54 Dose: 100 mg Documented by: Duloxetine HCl (Duloxetine 30 Mg Capsule) 30 mg PO DAILY [facility] Last Admin: 03/24/21 09:36 Dose: 30 mg Documented by: Enalaprilat (Enalaprilat 1.25 Mg/Ml Vial) 0.625 mg IV Q6HP PRN PRN Reason: Hypertension Last Admin: 03/22/21 19:04 Dose: 0.625 mg Documented by: Fondaparinux (Fondaparinux Sodium 2.5 Mg/0.5 Ml Syringe) 2.5 mg SQ DAILY [facility] Last Admin: 03/24/21 09:34 Dose: 2.5 mg Documented by: Furosemide (Furosemide 20 Mg Tablet) 20 mg PO DAILY [facility] Last Admin: 03/24/21 09:36 Dose: 20 mg Documented by: Glucose (Dextrose 31 Gm Oral.Susp) 15 gm PO PRN PRN PRN Reason: Hypoglycemia Hydralazine HCl (Hydralazine 20 Mg/Ml Vial) 20 mg IV Q4-6HP PRN PRN Reason: Hypertension Hydroxyzine HCl (Hydroxyzine 25 Mg Tablet) 25 mg PO TIDP PRN PRN Reason: Anxiety or itching Last Admin: 03/23/21 14:51 Dose: 25 mg Documented by: Magnesium Sulfate (Magnesium Sulfate) 2 gm in 50 mls @ 25 mls/hr IV PRN PRN PRN Reason: Hypomagnesemia Insulin Human Lispro (Insulin Lispro 1 Unit/0.01 Ml Unit) 0 unit SQ [facility]; Protocol Last Admin: 03/25/21 06:12 Dose: Not Given Documented by: Loperamide HCl (Loperamide 2 Mg Capsule) 2 mg PO PRN PRN PRN Reason: Diarrhea Melatonin (Melatonin 3 Mg Tablet) 3 mg PO QHS [facility] Last Admin: 03/24/21 20:53 Dose: 3 mg Documented by: Metformin HCl (Metformin 500 Mg Tab.Xl.24h) [facility] Last Admin: 03/24/21 16:30 Dose: 1,000 mg Documented by: Methadone HCl (Methadone 5 Mg Tablet) 20 mg PO BID [facility] Last Admin: 03/24/21 20:51 Dose: 20 mg Documented by: Naloxone HCl (Naloxone Hcl 0.4 Mg/Ml Vial) 0.2 mg IV Q5M PRN PRN Reason: Opiate Reversal Ondansetron HCl (Ondansetron 4 Mg/2 Ml Vial) 4 mg IV Q6HP PRN PRN Reason: Nausea And Vomiting Last Admin: 03/25/21 02:14 Dose: 4 mg Documented by: Oxycodone HCl (Oxycodone Hcl 5 Mg Tablet) 20 mg PO Q6HP PRN; Protocol PRN Reason: Per Pain Protocol Last Admin: 03/25/21 02:22 Dose: 20 mg Documented by: Pantoprazole Sodium (Pantoprazole 40 Mg Tablet) 40 mg PO ACB [facility] Last Admin: 03/24/21 07:50 Dose: 40 mg Documented by: Potassium Chloride (Potassium Chloride 20 Meq Tablet) 40 meq PO DAILYP PRN PRN Reason: POTASSIUM LEVEL LESS THAN 4 Potassium Chloride (Potassium Chloride 10 Meq Tablet) [facility] Last Admin: 03/24/21 07:50 Dose: 10 meq Documented by: Simvastatin (Simvastatin 40 Mg Tablet) 40 mg PO QHS [facility] Last Admin: 03/24/21 20:54 Dose: 40 mg Documented by: Sodium Chloride (0.9 % Sodium Chloride 10 Ml Syringe) 10 ml IV Q8 [facility] Last Admin: 03/25/21 05:40 Dose: 10 ml Documented by: Tizanidine HCl (Tizanidine 4 Mg Tablet) 4 mg PO TIDP PRN PRN Reason: MUSCLE SPASMS Last Admin: 03/24/21 18:32 Dose: 4 mg Documented by: A/P Narrative A/P Narrative: A: #Polysubstance overdose-unknown quantities -methadone, -oxycodone, -clonazepam, -buspirone #Suicide attempt by overdose: #Aspiration pneumonitis vs pneumonia: #Hypertension #DM II: #HLD #GERD #Chronic pain / fibromyalgia: #Opioid dependence: #Hx of stroke: #Hx HIT: Plan -Completed Ceftriaxone for possible aspiration pneumonia -Continue home PPI and lasix -resumed antidepressant -cleared by [facility], f/u outpt -[facility] -Disposition: still awaiting placement -DVT ppx: Fondaparinux (hx of HIT) Time Spent With Patient Time: Total time spent is greater than 50% in coordination of care (as documented) at patient's floor/unit and/or counseling patient: QUALITY VTE Deep Vein Thrombosis/Pulmonary Embolism Present on Admission: No
[2021-03-25] MEDS: POTASSIUM CHLORIDE 10 MEQ TABLET PO SCH (07:28)
[2021-03-25] MEDS: metFORMIN 500 MG TAB.XL.24H PO SCH ×2 (07:28→16:47)
[2021-03-25] MEDS: PANTOPRAZOLE 40 MG TABLET PO SCH (07:29)
[2021-03-25] MEDS: FONDAPARINUX SODIUM 2.5 MG/0.5 ML SYRINGE SQ SCH (08:50)
[2021-03-25] MEDS: METHADONE 5 MG TABLET PO SCH ×2 (08:51→21:18)
[2021-03-25] MEDS: amLODIPine 5 MG TABLET PO SCH (08:52)
[2021-03-25] MEDS: FUROSEMIDE 20 MG TABLET PO SCH (08:52)
[2021-03-25] MEDS: DULoxetine 30 MG CAPSULE PO SCH (08:52)
[2021-03-25] MEDS: DOCUSATE SODIUM 100 MG CAPSULE PO SCH ×2 (08:53→21:18)
[2021-03-25] MEDS: tiZANidine 4 MG TABLET PO PRN (15:22)
[2021-03-25] MEDS: MELATONIN 3 MG TABLET PO SCH (21:19)
[2021-03-25] MEDS: SIMVASTATIN 40 MG TABLET PO SCH (21:19)
[2021-03-26] MEDS: oxyCODONE HCL 5 MG TABLET PO PRN ×2 (02:14→17:00)
[2021-03-26] MEDS: 0.9 % SODIUM CHLORIDE 10 ML SYRINGE IV SCH ×3 (06:09→20:43)
[2021-03-26] MEDS: metFORMIN 500 MG TAB.XL.24H PO SCH ×2 (07:37→16:57)
[2021-03-26] MEDS: INSULIN LISPRO 1 UNIT/0.01 ML UNIT SQ SCH ×4 (07:38→20:38)
[2021-03-26] MEDS: POTASSIUM CHLORIDE 10 MEQ TABLET PO SCH (07:38)
[2021-03-26] MEDS: PANTOPRAZOLE 40 MG TABLET PO SCH (07:38)
[2021-03-26] MEDS: METHADONE 5 MG TABLET PO SCH ×2 (09:55→20:39)
[2021-03-26] MEDS: amLODIPine 5 MG TABLET PO SCH (09:56)
[2021-03-26] MEDS: DOCUSATE SODIUM 100 MG CAPSULE PO SCH ×2 (09:56→20:39)
[2021-03-26] MEDS: DULoxetine 30 MG CAPSULE PO SCH (09:56)
[2021-03-26] MEDS: FUROSEMIDE 20 MG TABLET PO SCH (09:58)
[2021-03-26] MEDS: FONDAPARINUX SODIUM 2.5 MG/0.5 ML SYRINGE SQ SCH (10:01)
[2021-03-26] MEDS: ONDANSETRON 4 MG/2 ML VIAL IV PRN (13:15)
[2021-03-26] MEDS ORDERED: MINERAL OIL 1 DOSE ENEMA PR PRN (19:09)
[2021-03-26] MEDS ORDERED: POLYETHYLENE GLYCOL 3350 17 GM PACKET PO PRN (19:09)
[2021-03-26] MEDS ORDERED: SENNOSIDES 8.8 MG/5 ML ML PT PRN (19:09)
[2021-03-26] MEDS ORDERED: LACTULOSE 20 GM/30 ML ORAL.SOL PO PRN (19:09)
--- NOTE | 2021-03-26 19:32 | Internal Med Progress Note ---
SUBJECTIVE Subjective Patient information: Note initiated : 03/26/21 at 7:23 pm Service Date, if different from initiated Date: [] Patient: Ember Shi 75 y/o F admitted on 03/17/21 for Overdose. Chief Complaint: [overdose] Interval history: Ms. Shi is a 75 year old female with a history of chronic pain on opioids, hypertension, DM, HLD who intentionally overdosed today at home. The patient took unknown quantities of methadone, oxycodone, clonazepam, buspirone, and probably other medications. She was found unresponsive by her daughter and given nasal narcan. EMS was called, the patient was taken to [facility] ED and given IV narcan. Workup included a CT chest, abdomen, pelvis w contrast that showed no acute post traumatic changes, there was moderate left lower lobe infiltrate and small patchy posterior right lower and left lower lobe infiltrates likely from aspiration, moderate urinary distention, mild cardiomegaly with possible enlargement of right ventricle. Initial EKG showed normal sinus rhythm, prolonged QTc. Repeat EKG showed improved QTc. She was admitted for ongoing management for multidrug overdose, the most concerning being methadone and oxycodone. 03/18-more alert than yesterday, QTc improving, following potassium and magnesium, goal 4.0 and 2.0 respectively, advanced diet, discontinued IV fluid, resumed home lasix 03/19-COWS 11 today consistent with moderate opioid withdrawal, opioid withdrawal prn meds, no beds at [facility] or [facility]. 03/20-started novasc for hypertension and added prn IV meds, QT still prolonged, continuing to replace potassium and magnesium as needed, [facility] following for suicide attempt. 03/21 No overnight event or new complaints. Other than complaining of some constipation. 03/22 Patient stated poor sleep but otherwise no new complaints. Waiting placement. 03/23 Patient has no complaints. Per the nurse blood pressure was elevated last night. But typically has been pretty decent. 03/24 No overnight or new complaints. Awaiting placement still 03/25 No changes. Still awaiting placement. 03/26: c/o constipation w/o bowel movement for 4 days. Otherwise no other major overnight events. Patient has poor appetite, thinks it might be due to constipation. Good mood, denies anxiety or depression or suicidal/homicidal ideations. Constitutional Vitals: Vital Signs Temp Pulse Resp BP Pulse Ox 36.2 C 60 18 134/69 95 03/26/21 15:56 03/26/21 15:56 03/26/21 15:56 03/26/21 15:56 03/26/21 15:56 Period Temp Pulse Resp BP Sys/Medina Pulse Ox Last 24 Hr 36.2 C-36.7 C 60-83 16-18 113-146/57-69 93-97 Intake and Output 03/26/21 03/26/21 03/26/21 05:59 13:59 21:59 Intake Total 800 480 Output Total 1350 650 300 Balance -550 -170 -300 Intake & Output: Intake & Output 03/26/21 03/26/21 03/26/21 05:59 13:59 21:59 Intake Total 800 480 Output Total 1350 650 300 Balance -550 -170 -300 Intake: Oral 800 480 Output: Urine Catheter Amount 350 Void Amount 1350 300 300 Other: Meal Breakfast Percent of Meal Consumed 100% Feeding Ability Independent Urine Appearance Clear Urine Color Bright Yellow Dark Yellow Urine Odor Normal General appearance: cooperative and no acute distress Head Head exam: Present atraumatic and normocephalic Eye Eye exam: Present EOMI and PERRL ENT ENT exam: Present mucous membranes moist, normal exam and normal external ear exam Neck Neck exam: Present normal inspection; Absent lymphadenopathy, tenderness and thyromegaly Respiratory Respiratory exam: Absent accessory muscle use, respiratory distress and wheezes Cardiovascular Cardiovascular exam: Present normal rate and rhythm; Absent JVD GI/Abdominal GI/Abdominal exam: Present normal bowel sounds and soft; Absent organomegaly and tenderness Extremities Exam Extremities exam: Present full ROM, normal capillary refill and normal inspection; Absent tenderness Neurological Exam Neurological exam: Present alert, CN II-XII intact and oriented X3; Absent motor sensory deficit Psychiatric Psychiatric exam: Present normal affect and normal mood; Absent anxious and depressed Skin Skin exam: Present dry and intact OBJ DATA Labs CBC & Chem 7: 03/19/21 04:45 03/21/21 05:55 Meds: Medications Acetaminophen (Acetaminophen 500 Mg Tablet) 500 mg PO Q4HP PRN; Protocol PRN Reason: Per Pain Protocol Last Admin: 03/24/21 18:31 Dose: 500 mg Documented by: Amlodipine Besylate (Amlodipine 5 Mg Tablet) 5 mg PO DAILY [facility] Last Admin: 03/26/21 09:56 Dose: 5 mg Documented by: Buspirone HCl (Buspirone 5 Mg Tablet) 10 mg PO TIDP PRN PRN Reason: Anxiety Last Admin: 03/23/21 14:51 Dose: 10 mg Documented by: Clonazepam (Clonazepam 0.5 Mg Tablet) 0.5 mg PO BIDP PRN PRN Reason: Anxiety Last Admin: 03/23/21 21:13 Dose: 0.5 mg Documented by: Dextrose (Dextrose 50% 50 Ml Vial) 0 ml IV UD PRN PRN Reason: Hypoglycemia Diagnostic Test (Pha) (Accu-Chek 1 Each Strip) 1 each FS ACHS [facility] Last Admin: 03/26/21 17:03 Dose: Not Given Documented by: Docusate Sodium (Docusate Sodium 100 Mg Capsule) 100 mg PO BID [facility] Last Admin: 03/26/21 09:56 Dose: 100 mg Documented by: Docusate Sodium (Docusate Sodium 50 Mg/5 Ml Oral.Kristie) 250 mg PO DAILY [facility] Duloxetine HCl (Duloxetine 30 Mg Capsule) 30 mg PO DAILY [facility] Last Admin: 03/26/21 09:56 Dose: 30 mg Documented by: Enalaprilat (Enalaprilat 1.25 Mg/Ml Vial) 0.625 mg IV Q6HP PRN PRN Reason: Hypertension Last Admin: 03/22/21 19:04 Dose: 0.625 mg Documented by: Fondaparinux (Fondaparinux Sodium 2.5 Mg/0.5 Ml Syringe) 2.5 mg SQ DAILY [facility] Last Admin: 03/26/21 10:01 Dose: 2.5 mg Documented by: Furosemide (Furosemide 20 Mg Tablet) 20 mg PO DAILY [facility] Last Admin: 03/26/21 09:58 Dose: Not Given Documented by: Glucose (Dextrose 31 Gm Oral.Susp) 15 gm PO PRN PRN PRN Reason: Hypoglycemia Hydralazine HCl (Hydralazine 20 Mg/Ml Vial) 20 mg IV Q4-6HP PRN PRN Reason: Hypertension Hydroxyzine HCl (Hydroxyzine 25 Mg Tablet) 25 mg PO TIDP PRN PRN Reason: Anxiety or itching Last Admin: 03/23/21 14:51 Dose: 25 mg Documented by: Magnesium Sulfate (Magnesium Sulfate) 2 gm in 50 mls @ 25 mls/hr IV PRN PRN PRN Reason: Hypomagnesemia Insulin Human Lispro (Insulin Lispro 1 Unit/0.01 Ml Unit) [address] [facility]; Protocol Last Admin: 03/26/21 17:04 Dose: Not Given Documented by: Lactulose (Lactulose 20 Gm/30 Ml Oral.Kristie) 10 gm PO DAILYP PRN PRN Reason: Constipation Loperamide HCl (Loperamide 2 Mg Capsule) 2 mg PO PRN PRN PRN Reason: Diarrhea Melatonin (Melatonin 3 Mg Tablet) 3 mg PO QHS [facility] Last Admin: 03/25/21 21:19 Dose: 3 mg Documented by: Metformin HCl (Metformin 500 Mg [facility]l.24h) [facility] Last Admin: 03/26/21 16:57 Dose: 1,000 mg Documented by: Methadone HCl (Methadone 5 Mg Tablet) 20 mg PO BID [facility] Last Admin: 03/26/21 09:55 Dose: 20 mg Documented by: Mineral Oil (Mineral Oil 1 Dose Enema) 1 dose ID ONCE PRN PRN Reason: Constipation Naloxone HCl (Naloxone Hcl 0.4 Mg/Ml Vial) 0.2 mg IV Q5M PRN PRN Reason: Opiate Reversal Ondansetron HCl (Ondansetron 4 Mg/2 Ml Vial) 4 mg IV Q6HP PRN PRN Reason: Nausea And Vomiting Last Admin: 03/26/21 13:15 Dose: 4 mg Documented by: Oxycodone HCl (Oxycodone Hcl 5 Mg Tablet) 20 mg PO Q6HP PRN; Protocol PRN Reason: Per Pain Protocol Last Admin: 03/26/21 17:00 Dose: 20 mg Documented by: Pantoprazole Sodium (Pantoprazole 40 Mg Tablet) 40 mg PO ACB [facility] Last Admin: 03/26/21 07:38 Dose: 40 mg Documented by: Polyethylene Glycol (Polyethylene Glycol 3350 17 Gm Packet) 17 gm PO DAILYP PRN PRN Reason: Constipation Potassium Chloride (Potassium Chloride 20 Meq Tablet) 40 meq PO DAILYP PRN PRN Reason: POTASSIUM LEVEL LESS THAN 4 Potassium Chloride (Potassium Chloride 10 Meq Tablet) 10 meq PO QAMCC [facility] Last Admin: 03/26/21 07:38 Dose: 10 meq Documented by: Senna (Sennosides 8.8 Mg/5 Ml Ml) 17.2 mg PT BID PRN PRN Reason: Constipation Simvastatin (Simvastatin 40 Mg Tablet) 40 mg PO QHS [facility] Last Admin: 03/25/21 21:19 Dose: 40 mg Documented by: Sodium Chloride (0.9 % Sodium Chloride 10 Ml Syringe) 10 ml IV Q8 [facility] Last Admin: 03/26/21 13:15 Dose: 10 ml Documented by: Tizanidine HCl (Tizanidine 4 Mg Tablet) 4 mg PO TIDP PRN PRN Reason: MUSCLE SPASMS Last Admin: 03/25/21 15:22 Dose: 4 mg Documented by: A/P Assessment and plan (1) Overdose: Status: Acute Qualifiers: Encounter type: initial encounter Injury intent: intentional self-harm Qualified Code(s): T50.902A - Poisoning by unspecified drugs, medicaments and biological substances, intentional self-harm, initial encounter (2) Suicide attempt by multiple drug overdose: Status: Acute Qualifiers: Encounter type: initial encounter Qualified Code(s): T50.912A - Poisoning by multiple unspecified drugs, medicaments and biological substances, intentional self-harm, initial encounter (3) Constipation: Status: Acute (4) Hypertension: Status: Chronic (5) Mixed dyslipidemia: Status: Acute (6) GERD (gastroesophageal reflux disease): Status: Chronic (7) History of pneumonia: Status: Chronic (8) T2DM (type 2 diabetes mellitus): Status: Acute Narrative A/P Narrative: 1. Suicidal attempt with polysubstance overdose (methasone, oxycodone, clonazepam, buspirone, and probably other medications: Evaluated and cleared by [facility] Continue Cymbalta Pending placement 2. Constipation: Colace Senna PRN constipation Miralax PRN constipation Lactulose PRN constipation Fleet enema ID PRN constipation 3. Essential HTN: Lasix PO Amlodipine 4. Mixed dyslipidemia: Continue statin therapy 5. GERD: Continue oral PPI from home regimen 6. T2DM: Diabetic diet Metformin 7. h/o aspiration pneumonia: Finished course of antibiotics therapy Currently on room air, afebrile GI ppx: Continue oral PPI from home regimen DVT ppx: Fondaparinux (h/o HIT) Code status: DNI DNR Prognosis: stable Disposition: inpatient med surg pending placement Time Spent With Patient Time: Total time spent is greater than 50% in coordination of care (as documented) at patient's floor/unit and/or counseling patient: Total time spent with greater than 50% in coordination of care (as documented) at patient's floor/unit and/or counseling patient:: 15 - 24 minutes QUALITY VTE Deep Vein Thrombosis/Pulmonary Embolism Present on Admission: No
[2021-03-26] MEDS: SIMVASTATIN 40 MG TABLET PO SCH (20:39)
[2021-03-26] MEDS: MELATONIN 3 MG TABLET PO SCH (20:39)
[2021-03-27] MEDS: 0.9 % SODIUM CHLORIDE 10 ML SYRINGE IV SCH ×2 (05:55→14:00)
[2021-03-27] MEDS ORDERED: DOCUSATE SODIUM 50 MG/5 ML ORAL.SOL PO SCH (09:00)
[2021-03-27] MEDS: METHADONE 5 MG TABLET PO SCH (09:14)
[2021-03-27] MEDS: DOCUSATE SODIUM 100 MG CAPSULE PO SCH (09:15)
[2021-03-27] MEDS: DULoxetine 30 MG CAPSULE PO SCH (09:16)
[2021-03-27] MEDS: PANTOPRAZOLE 40 MG TABLET PO SCH (09:16)
[2021-03-27] MEDS: POTASSIUM CHLORIDE 10 MEQ TABLET PO SCH (09:16)
[2021-03-27] MEDS: amLODIPine 5 MG TABLET PO SCH (09:17)
[2021-03-27] MEDS: INSULIN LISPRO 1 UNIT/0.01 ML UNIT SQ SCH ×2 (09:18→13:50)
[2021-03-27] MEDS: FUROSEMIDE 20 MG TABLET PO SCH (09:18)
[2021-03-27] MEDS: metFORMIN 500 MG TAB.XL.24H PO SCH (09:20)
[2021-03-27] MEDS: FONDAPARINUX SODIUM 2.5 MG/0.5 ML SYRINGE SQ SCH (09:21)
[2021-03-27] MEDS: ONDANSETRON 4 MG/2 ML VIAL IV PRN (09:44)
[2021-03-27] MEDS ORDERED: ONDANSETRON 4 MG ODT TABLET SL PRN (10:39)
[2021-03-27] MEDS: ACETAMINOPHEN 500 MG TABLET PO PRN (13:44)
[2021-03-27] MEDS ORDERED: SENNOSIDES 1 TABLET PO PRN (13:55)
[2021-03-27] MEDS: oxyCODONE HCL 5 MG TABLET PO PRN (15:19)
--- NOTE | 2021-03-27 15:54 | Discharge Summary ---
Discharge Provider Provider Patient information: Note initiated : 03/27/21 at 3:51 pm Service Date, if different from initiated Date: [] Patient: Ember Shi 75 y/o F admitted on 03/17/21 for Overdose. Chief Complaint: [] Interval history: Ms. Shi is a 75 year old female with a history of chronic pain on opioids, hypertension, DM, HLD who intentionally overdosed today at home. The patient took unknown quantities of methadone, oxycodone, clonazepam, buspirone, and probably other medications. She was found unresponsive by her daughter and given nasal narcan. EMS was called, the patient was taken to [facility] ED and given IV narcan. Workup included a CT chest, abdomen, pelvis w contrast that showed no acute post traumatic changes, there was moderate left lower lobe infiltrate and small patchy posterior right lower and left lower lobe infiltrates likely from aspiration, moderate urinary distention, mild cardiomegaly with possible enlargement of right ventricle. Initial EKG showed normal sinus rhythm, prolonged QTc. Repeat EKG showed improved QTc. She was admitted for ongoing management for multidrug overdose, the most concerning being methadone and oxycodone. 03/18-more alert than yesterday, QTc improving, following potassium and magnesium, goal 4.0 and 2.0 respectively, advanced diet, discontinued IV fluid, resumed home lasix 03/19-COWS 11 today consistent with moderate opioid withdrawal, opioid withdrawal prn meds, no beds at [facility] or [facility]. 03/20-started novasc for hypertension and added prn IV meds, QT still prolonged, continuing to replace potassium and magnesium as needed, [facility] following for suicide attempt. 03/21 No overnight event or new complaints. Other than complaining of some constipation. 03/22 Patient stated poor sleep but otherwise no new complaints. Waiting placement. 03/23 Patient has no complaints. Per the nurse blood pressure was elevated last night. But typically has been pretty decent. 03/24 No overnight or new complaints. Awaiting placement still 03/25 No changes. Still awaiting placement. 03/26: c/o constipation w/o bowel movement for 4 days. Otherwise no other major overnight events. Patient has poor appetite, thinks it might be due to constipation. Good mood, denies anxiety or depression or suicidal/homicidal ideations. Date of admission: 03/17/21 16:00 Discharge date: 03/27/21 Primary care physician: PCP No Consults: 03/17/21 Consult to Physician [CONS] Stat Comment: Consulting Provider: Clayton Bess Reason For Exam: Physician to Consult Discharge Meds Discharge Medications Home Medications hydroxyzine HCl 25 mg tablet 25 mg PO QHS PRN 03/29/20 [History Confirmed 03/18/21 Last Taken 03/15/21] metformin 500 mg tablet,extended release 24 hr 1,000 mg PO BID 03/29/20 [History Confirmed 03/18/21 Last Taken 03/16/21] methadone 10 mg tablet 20 mg PO BID 03/29/20 [History Confirmed 03/17/21 Last Taken 03/17/21 03:30] oxycodone 20 mg tablet 20 mg PO Q4HP PRN 03/29/20 [History Confirmed 03/17/21 Last Taken 03/17/21 03:00] pantoprazole 40 mg granules delayed-release for susp in packet 40 mg PO DAILY 03/29/20 [History Confirmed 03/18/21 Last Taken 03/15/21] simvastatin 40 mg tablet 40 mg PO QHS 03/29/20 [History Confirmed 03/17/21 Last Taken Unknown] buspirone 10 mg PO TID PRN 03/17/21 [History Confirmed 03/18/21 Last Taken 03/15/21] clonazepam 0.5 mg PO BID PRN 03/17/21 [History Confirmed 03/18/21 Last Taken 03/17/21] duloxetine 30 mg PO QDAY 03/17/21 [History Confirmed 03/18/21 Last Taken 03/16/21] ergocalciferol (vitamin D2) 50,000 unit PO WEEKLY 03/17/21 [History Confirmed 03/17/21 Last Taken Unknown] furosemide 20 mg PO QDAY 03/17/21 [History Confirmed 03/17/21 Last Taken Unknown] potassium chloride 10 meq PO QDAY 03/17/21 [History Confirmed 03/17/21 Last Taken Unknown] carisoprodol 350 mg PO TID PRN 03/18/21 [History Confirmed 03/18/21 Last Taken 03/15/21] diclofenac sodium 2 g TOPICAL QID PRN 03/18/21 [History Confirmed 03/18/21 Last Taken Unknown] fluconazole 150 mg PO Q3D 03/18/21 [History Confirmed 03/18/21 Last Taken Unknown] amlodipine 5 mg PO DAILY #30 tab 03/27/21 [Rx Last Taken Unknown] ondansetron 4 mg PO Q8H PRN #20 tab 03/27/21 [Rx Last Taken Unknown] polyethylene glycol 3350 [Miralax] 17 g PO DAILYP PRN #30 ea 03/27/21 [Rx Last Taken Unknown] COURSE Hospital Course Hospital course: Polysubstance overdose: Evaluated and cleared by Q. Narcan provided as needed for opioid reversal. Aspiration pneumonia: Completed a course of Rocephin. Now tolerated room air, afebrile, and any leukocytosis resolved. Constipation: Stool softeners and Laxatives given and patient was eventually able to have bowel movements. Discharge diagnosis: polysubstance overdose, constipation, aspiration pneumonia Time Spent with Patient Time attestation: Total time spent providing and/or coordinating discharge services: EXAM Constitutional Vitals: Temp Pulse Resp BP Pulse Ox 36.1 C 69 16 128/66 95 03/27/21 12:00 03/27/21 12:00 03/27/21 12:00 03/27/21 12:03/27/21 12:00 General appearance: cooperative and no acute distress Head Head exam: Present atraumatic and normocephalic Eye Eye exam: Present EOMI and PERRL ENT ENT exam: Present mucous membranes moist, normal exam and normal external ear exam Neck Neck exam: Present normal inspection; Absent lymphadenopathy, tenderness and thyromegaly Respiratory Respiratory exam: Absent accessory muscle use, respiratory distress and wheezes Cardiovascular Cardiovascular exam: Present normal rate and rhythm; Absent JVD GI/Abdominal GI/Abdominal exam: Present normal bowel sounds and soft; Absent organomegaly and tenderness Extremities Exam Extremities exam: Present full ROM, normal capillary refill and normal inspection; Absent tenderness Neurological Exam Neurological exam: Present alert, CN II-XII intact and oriented X3; Absent motor sensory deficit Psychiatric Psychiatric exam: Present normal affect and normal mood; Absent anxious and depressed Skin Skin exam: Present dry and intact Discharge Plan Patient/Caregiver Discharge Instructions Activity: increase activity as tolerated Diet: Consistent Carbohydrate Activity Restrictions/Additional Instructions: Follow-up with PCP in 2 weeks Follow-up with [facility] in 3 to 7 days Prescriptions: New polyethylene glycol 3350 [Miralax] 17 gram Powder In Packet 17 g PO DAILYP PRN (Reason: Constipation) Qty: 30 RF: 0 amlodipine 5 mg Tablet 5 mg PO DAILY Qty: 30 RF: 0 Continued hydroxyzine HCl 25 mg tablet 25 mg tablet 25 mg PO QHS PRN (Reason: Itching) RF: 0 metformin 500 mg tablet extended release 24 hr 1,000 mg PO BID RF: 0 methadone 10 mg tablet 20 mg PO BID RF: 0 oxycodone 20 mg tablet 20 mg PO Q4HP PRN (Reason: Pain) RF: 0 pantoprazole [address] for susp in packet 40 mg PO DAILY RF: 0 simvastatin 40 mg tablet 40 mg PO QHS RF: 0 clonazepam 0.5 mg Tablet 0.5 mg PO BID PRN (Reason: Anxiety) RF: 0 potassium chloride 10 mEq Tablet Extended Release 10 meq PO QDAY RF: 0 ergocalciferol (vitamin D2) 50,000 unit Tablet 50,000 unit PO WEEKLY RF: 0 buspirone 10 mg Tablet 10 mg PO TID PRN (Reason: Anxiety) RF: 0 furosemide 20 mg Tablet 20 mg PO QDAY RF: 0 duloxetine 30 mg Capsule,Delayed Release(Dr/Ec) 30 mg PO QDAY RF: 0 carisoprodol 350 mg tablet 350 mg PO TID PRN (Reason: Spasms) RF: 0 fluconazole 150 mg tablet 150 mg PO Q3D RF: 0 diclofenac sodium 1 % gel 2 g TOPICAL QID PRN (Reason: Pain) RF: 0 ondansetron 4 mg tablet,disintegrating 4 mg PO Q8H PRN (Reason: Nausea) Qty: 20 RF: 0 Follow Up Plan Follow up with: No,PCP [Primary Care Provider] - Patient Disposition: Home, Self-Care Prognosis: Undetermined Rehab Potential: Undetermined Overall status at discharge: patient is progressing back to baseline Discharge Orders: Discharge Order (Routine); Ordered 03/27/21 Ordered By: Gabriel RODRIGUEZ VTE Deep Vein Thrombosis/Pulmonary Embolism Present on Admission: No
== END 2021-03-27 16:35 | disposition home or self-care (01) | DRG 917 ==
LOC: ED 05:49 → ICU 15:56 → ED 16:00 → MEDSUR 03-22 15:20
PROVIDERS: ADMIT Internal Medicine; ATTEND Internal Medicine